=== PATIENT | female | born 1955 | race African-American/Black ===

== ENCOUNTER 2018-06-06 12:50 | Inpatient (IN) | payer MEDICAID ==
[~2018-06-06] VITALS: Ht 182.9 cm; Wt 74.8 kg
[~2018-06-06 12:50] MED LIST: PHEN60TA
[2018-06-06] MEDS ORDERED: ASPIRIN 325MG TABLET PO ONE (16:15)
[2018-06-06] MEDS: NITROGLYCERIN 0.4MG TABLET SL SL PRN ×2 (16:28→16:35)
[2018-06-06 17:21] LABS: BASOPHILS % 0.5 % (0.0-2.0); EOSINOPHILS % 0.2 % (0.0-5.0); HEMATOCRIT. 42.3 % (36.0-48.0); HEMOGLOBIN. 14.4 g/dL (12.0-16.0); LYMPHOCYTES % 37.6 % (20.0-50.0); MEAN CORPUSCULAR HEMOGLOBIN 34.4 pg (28.0-32.0); MEAN CORPUSCULAR VOLUME 100.9 fL (81.0-99.0); MEAN PLATELET VOLUME 9.4 fl (7.4-10.4); MONOCYTES % 8.8 % (2.0-8.0); NEUTROPHILS % 52.9 % (40.0-76.0); PLATELET 177 x1000/uL (130-400); RED CELL DISTRIBUTION WIDTH 14.1 % (11.6-14.6)
[2018-06-06 17:25] LABS: CHLORIDE 94 mEq/L (98-107)
[2018-06-06 17:31] LABS: INR 1.1; PARTIAL THROMBOPLASTIN TIME 26.9 sec (23.4-31.0); PROTHROMBIN TIME 10.6 sec (9.1-11.1)
[2018-06-06 17:32] LABS: CLARITY URINE CLEAR (CLEAR); COLOR URINE YELLOW (YELLOW); KETONES URINE NEGATIVE (NEGATIVE); LEUKOCYTE ESTERASE URINE NEGATIVE (NEGATIVE); NITRITE URINE NEGATIVE (NEGATIVE); OCCULT BLOOD URINE TRACE (NEGATIVE); PROTEIN URINE NEGATIVE (NEGATIVE); SPECIFIC GRAVITY URINE 1.014 (1.005-1.030)
[2018-06-06] MEDS ORDERED: KCL 10MEQ/50ML PREMIX 50 ML IV ONE (17:45)
[2018-06-06] MEDS ORDERED: POTASSIUM CHLORIDE 20MEQ TABLET SR PO ONE (17:45)
[2018-06-06 17:47] LABS: *BARBITURATES SCREEN URINE PRESUMTIVE POSITIVE (NEGATIVE)
[2018-06-06 17:48] LABS: *BENZODIAZEPINES SCREEN URINE NEGATIVE (NEGATIVE); *COCAINE SCREEN URINE NEGATIVE (NEGATIVE); CANNABINOID URINE SCREEN PRESUMTIVE POSITIVE (NEGATIVE); METHADONE URINE SCREEN NEGATIVE (NEGATIVE); OPIATES URINE SCREEN NEGATIVE (NEGATIVE); PHENCYCLIDINE URINE SCREEN NEGATIVE (NEGATIVE)
[2018-06-06 17:55] LABS: *AMPHETAMINES SCREEN URINE NEGATIVE (NEGATIVE)
[2018-06-06] MEDS ORDERED: GUAIFENESIN 200MG/10ML SUGAR FREE UDC PO PRN (19:45)
[2018-06-06] MEDS ORDERED: CLONIDINE 0.1MG TABLET PO PRN (19:45)
[2018-06-06] MEDS ORDERED: IPRATROPIUM/ALBUTEROL 0.5-3(2.5)MG/3ML NEB INH PRN (19:45)
[2018-06-06] MEDS ORDERED: MAGNESIUM/ALUMINUM HYDROXIDE/SIMETHICONE 30ML UDC PO PRN (19:45)
[2018-06-06] MEDS ORDERED: ONDANSETRON HCL 4MG/2ML INJ IV PRN (19:45)
[2018-06-06] MEDS ORDERED: ACETAMINOPHEN 325MG TABLET PO PRN (19:45)
[2018-06-06] MEDS ORDERED: DOCUSATE SODIUM 100MG CAPSULE PO PRN (19:45)
[2018-06-07] VITALS (7 sets, daily range): BP systolic 107–148; BP diastolic 63–70
[2018-06-07 00:22] LABS: CHLORIDE 99 mEq/L (98-107)
[2018-06-07 00:31] LABS: CREATINE KINASE 132 IU/L (26-192)
[2018-06-07 00:33] LABS: CREATINE KINASE MB FRACTION 1.5 ng/mL (0.5-3.6)
[2018-06-07] MEDS ORDERED: AMLO10TA4 MT (03:00)
[2018-06-07] MEDS ORDERED: PHEN60TA PO (03:00)
[2018-06-07] MEDS ORDERED: KEPP500 PO (03:00)
[2018-06-07 07:57] LABS: BASOPHILS % 0.5 % (0.0-2.0); EOSINOPHILS % 0.4 % (0.0-5.0); HEMATOCRIT. 41.1 % (36.0-48.0); LYMPHOCYTES % 25.2 % (20.0-50.0); MEAN CORPUSCULAR HEMOGLOBIN 34.2 pg (28.0-32.0); MEAN CORPUSCULAR VOLUME 100.8 fL (81.0-99.0); MEAN PLATELET VOLUME 9.1 fl (7.4-10.4); MONOCYTES % 9.7 % (2.0-8.0); NEUTROPHILS % 64.2 % (40.0-76.0); PLATELET 159 x1000/uL (130-400); RED BLOOD CELL COUNT 4.08 mill/uL (4.2-5.4)
[2018-06-07] MEDS ORDERED: POTASSIUM CHLORIDE INJ 40 MEQ in DEXT 5% WATER 250 ML IV SCH (08:30)
[2018-06-07] MEDS: ASPIRIN 81MG EC TABLET PO SCH (09:39)
[2018-06-07] MEDS: ENOXAPARIN 40MG/0.4ML SYR SUBCUT SCH (09:40)
[2018-06-07] MEDS: HYDROCODONE/ACETAMINOPHEN 5/325MG TABLET PO PRN ×3 (10:28→21:07)
[2018-06-07 11:30] LABS: HDL CHOLESTEROL 86 mg/dL (40-59)
[2018-06-07 11:33] LABS: CREATINE KINASE 123 IU/L (26-192); LDL CHOLESTEROL 147 mg/dL (5-100)
[2018-06-07 11:36] LABS: CREATINE KINASE MB FRACTION 1.4 ng/mL (0.5-3.6)
[2018-06-07] MEDS: LEVETIRACETAM 500MG TABLET PO SCH (11:41)
[2018-06-07] MEDS: AMLODIPINE 10MG TABLET PO SCH (11:41)
[2018-06-07] MEDS ORDERED: INFLUENZA VIRUS VACCINE(AFLURIA) 0.5ML SYR IM ONE (12:00)
[2018-06-07] MEDS: PHENOBARBITAL 60MG TABLET PO SCH (13:59)
[2018-06-07] MEDS: POTASSIUM CHLORIDE 20MEQ TABLET SR PO SCH (15:46)
[2018-06-07] MEDS ORDERED: ATORVASTATIN CALCIUM 40MG TABLET PO SCH (21:00)
[2018-06-08 04:13] VITALS: BP 120/72
[2018-06-08 06:56] LABS: HEMATOCRIT. 40.9 % (36.0-48.0); HEMOGLOBIN. 13.9 g/dL (12.0-16.0); MEAN CORPUSCULAR HEMOGLOBIN 34.5 pg (28.0-32.0); MEAN CORPUSCULAR VOLUME 101.3 fL (81.0-99.0); MEAN PLATELET VOLUME 9.7 fl (7.4-10.4); PLATELET 160 x1000/uL (130-400); RED BLOOD CELL COUNT 4.04 mill/uL (4.2-5.4); RED CELL DISTRIBUTION WIDTH 14.4 % (11.6-14.6)
[2018-06-08] MEDS: HYDROCODONE/ACETAMINOPHEN 5/325MG TABLET PO PRN ×3 (07:02→18:27)
[2018-06-08] MEDS ORDERED: DEXTROSE 50% WATER 50ML SYRINGE IV PRN (07:15)
[2018-06-08] MEDS: BLOOD SUGAR DIAGNOSTIC STRIP TEST SCH ×3 (07:23→17:50)
[2018-06-08 07:33] LABS: CHLORIDE 101 mEq/L (98-107)
[2018-06-08 08:00] VITALS: BP 118/68
[2018-06-08] MEDS ORDERED: POLYETHYLENE GLYCOL 3350 (17GM) 1 DOSE PACK PO SCH (09:00)
[2018-06-08] MEDS: LEVETIRACETAM 500MG TABLET PO SCH (10:42)
[2018-06-08] MEDS: POTASSIUM CHLORIDE 20MEQ TABLET SR PO SCH (10:42)
[2018-06-08] MEDS: ASPIRIN 81MG EC TABLET PO SCH (10:42)
[2018-06-08] MEDS: ENOXAPARIN 40MG/0.4ML SYR SUBCUT SCH (10:43)
[2018-06-08] MEDS: AMLODIPINE 10MG TABLET PO SCH (10:43)
[2018-06-08] MEDS: PHENOBARBITAL 60MG TABLET PO SCH (10:43)
[2018-06-08 12:00] VITALS: BP 120/64
[2018-06-08] MEDS: INSULIN LISPRO 100 UNITS/ML SUBCUT SCH ×2 (12:50→17:50)
[2018-06-08 16:00] VITALS: BP 130/68
[2018-06-08] MEDS ORDERED: POTASSIUM CHLORIDE 20MEQ TABLET SR PO NR (17:45)
[2018-06-08] MEDS ORDERED: POLY17PO3 PO (17:45)
[2018-06-08] MEDS ORDERED: POTA10CA42 MT (17:45)
[2018-06-08] MEDS ORDERED: ASPI-1158 PO (17:45)
[2018-06-08] MEDS ORDERED: LIP40 PO (17:45)
[2018-06-08 19:49] VITALS: BP 127/81
[2018-06-08 20:00] VITALS: BP 127/81
[2018-06-09 09:56] LABS: PLATELET ESTIMATE NORMAL
== END 2018-06-08 20:45 | disposition home or self-care (01) | DRG 198 ==
LOC: ER 12:50 → 6WST 18:11 → EDBEDREQTM 18:23 → EDBEDREQ 18:23 → ENRESERV 23:19
PROVIDERS: ADMIT Internal Medicine; ATTEND Internal Medicine
DX: R07.89 Other chest pain (principal); I25.110 Atherosclerotic heart disease of native coronary artery with unstable angina pectoris; E11.9 Type 2 diabetes mellitus without complications; E78.5 Hyperlipidemia, unspecified; E87.6 Hypokalemia; H54.62 Unqualified visual loss, left eye, normal vision right eye; I10 Essential (primary) hypertension; M10.9 Gout, unspecified; M19.90 Unspecified osteoarthritis, unspecified site; Z90.710 Acquired absence of both cervix and uterus; Z88.5 Allergy status to narcotic agent; Z88.6 Allergy status to analgesic agent; Z79.899 Other long term (current) drug therapy
CPT/HCPCS: 36415; 71045; 80048; 80061; 80305; 82550; 82553; 82962; 83036; 83735; 83880; 84443; 84484; 85379; 90686; 93005; 93306; 93970; 96360; 99285; J1650; J3480; J7050; J7060

== ENCOUNTER 2019-02-20 07:08 | Inpatient (IN) | payer MEDICAID ==
[~2019-02-20] VITALS: Ht 182.9 cm; Wt 84.0 kg
[~2019-02-20 07:08] MED LIST changes: +AMLO10TA4 MT; +ASPI-1158 PO; +KEPP500 PO; +LIP40 PO; +POLY17PO3 PO; +POTA10CA42 MT
[2019-02-20] MEDS ORDERED: NITROGLYCERIN 0.4MG TABLET SL SL PRN (07:30)
[2019-02-20] MEDS ORDERED: ACETAMINOPHEN WITH CODEINE 300/30MG TABLET PO STA (07:30)
[2019-02-20] MEDS ORDERED: ASPIRIN 81MG TABLET PO ONE (07:30)
[2019-02-20 08:22] LABS: BASOPHILS % 0.8 % (0.0-2.0); HEMATOCRIT. 42.3 % (36.0-48.0); HEMOGLOBIN. 14.8 g/dL (12.0-16.0); LYMPHOCYTES % 42.6 % (20.0-50.0); MEAN CORPUSCULAR HEMOGLOBIN 36.2 pg (28.0-32.0); MEAN CORPUSCULAR VOLUME 103.9 fL (81.0-99.0); MEAN PLATELET VOLUME 8.9 fl (7.4-10.4); MONOCYTES % 6.9 % (2.0-8.0); NEUTROPHILS % 49.7 % (40.0-76.0); PLATELET 151 x1000/uL (130-400); RED BLOOD CELL COUNT 4.07 mill/uL (4.2-5.4)
[2019-02-20 08:29] LABS: CHLORIDE 101 mEq/L (98-107)
[2019-02-20] MEDS ORDERED: KCL 20MEQ/100ML PREMIX 100 ML IV ONE (09:15)
[2019-02-20] MEDS ORDERED: ONDANSETRON HCL 4MG/2ML INJ IV ONE (09:15)
[2019-02-20] MEDS ORDERED: POTASSIUM CHLORIDE 20MEQ TABLET SR PO ONE (09:15)
[2019-02-20] MEDS ORDERED: METOCLOPRAMIDE HCL 10MG/2ML VIAL IV ONE (10:15)
[2019-02-20] MEDS ORDERED: DOCUSATE SODIUM 100MG CAPSULE PO PRN (11:15)
[2019-02-20] MEDS ORDERED: CLONIDINE 0.1MG TABLET PO PRN (11:15)
[2019-02-20] MEDS ORDERED: DIPHENHYDRAMINE 50MG/ML VIAL IV PRN (11:15)
[2019-02-20] MEDS ORDERED: MAGNESIUM/ALUMINUM HYDROXIDE/SIMETHICONE 30ML UDC PO PRN (11:15)
[2019-02-20] MEDS ORDERED: GUAIFENESIN 200MG/10ML SUGAR FREE UDC PO PRN (11:15)
[2019-02-20] MEDS ORDERED: ONDANSETRON HCL 4MG/2ML INJ IV PRN (11:15)
[2019-02-20 11:37] LABS: PHOSPHORUS 3.3 mg/dL (2.5-4.9)
[2019-02-20 12:00] VITALS: BP 140/77
[2019-02-20] MEDS ORDERED: IPRATROPIUM/ALBUTEROL 0.5-3(2.5)MG/3ML NEB HHN PRN (12:00)
[2019-02-20 12:23] VITALS: BP 138/92
[2019-02-20] MEDS ORDERED: POTASSIUM CHLORIDE 20MEQ TABLET SR PO NR (13:45)
[2019-02-20] MEDS ORDERED: MAGNESIUM 2 G PREMIX 50 ML IV NR (14:00)
[2019-02-20] MEDS: AMLODIPINE 10MG TABLET PO SCH (14:06)
[2019-02-20] MEDS: LEVETIRACETAM 500MG TABLET PO SCH ×2 (14:06→20:46)
[2019-02-20] MEDS: ENOXAPARIN 40MG/0.4ML SYR SUBCUT SCH (14:07)
[2019-02-20] MEDS: PHENOBARBITAL 30 MG TABLET PO SCH (14:07)
[2019-02-20] MEDS: SODIUM CHLORIDE 0.9% 1,000 ML IV SCH (14:08)
[2019-02-20] MEDS: MORPHINE SULFATE 2 MG/ML CPJ (NOT FOR IM USE) IV PRN ×2 (14:09→20:31)
[2019-02-20] MEDS ORDERED: LORAZEPAM 2MG/ML CPJ IV PRN (14:30)
[2019-02-20 16:00] VITALS: BP 140/62
[2019-02-20 20:00] VITALS: BP 121/78
[2019-02-20 20:24] LABS: CREATINE KINASE 172 IU/L (26-192)
[2019-02-20 20:27] LABS: CREATINE KINASE MB FRACTION 1.9 ng/mL (0.5-3.6)
[2019-02-20] MEDS: ATORVASTATIN CALCIUM 40MG TABLET PO SCH (20:46)
[2019-02-20] MEDS: FAMOTIDINE 20MG/2ML VIAL IV SCH (20:47)
[2019-02-21] VITALS: BP 141/73
[2019-02-21] MEDS: SODIUM CHLORIDE 0.9% 1,000 ML IV SCH ×2 (00:18→12:14)
[2019-02-21 04:00] VITALS: BP 135/78
[2019-02-21] MEDS: MORPHINE SULFATE 2 MG/ML CPJ (NOT FOR IM USE) IV PRN ×3 (04:24→20:35)
[2019-02-21 07:02] LABS: BASOPHILS % 0.4 % (0.0-2.0); EOSINOPHILS % 0.2 % (0.0-5.0); HEMATOCRIT. 41.4 % (36.0-48.0); HEMOGLOBIN. 14.3 g/dL (12.0-16.0); LYMPHOCYTES % 34.1 % (20.0-50.0); MEAN CORPUSCULAR VOLUME 104.1 fL (81.0-99.0); MEAN PLATELET VOLUME 9.6 fl (7.4-10.4); MONOCYTES % 10.4 % (2.0-8.0); NEUTROPHILS % 54.9 % (40.0-76.0); PLATELET 127 x1000/uL (130-400); RED BLOOD CELL COUNT 3.97 mill/uL (4.2-5.4); RED CELL DISTRIBUTION WIDTH 13.8 % (11.6-14.6)
[2019-02-21 07:50] LABS: CHLORIDE 102 mEq/L (98-107)
[2019-02-21 08:00] VITALS: BP 142/74
[2019-02-21 08:08] LABS: LDL CHOLESTEROL 92 mg/dL (5-100)
[2019-02-21 08:09] LABS: CREATINE KINASE 235 IU/L (26-192); HDL CHOLESTEROL 53 mg/dL (40-59)
[2019-02-21] MEDS ORDERED: ASPIRIN 81MG EC TABLET PO SCH (09:00)
[2019-02-21] MEDS: AMLODIPINE 10MG TABLET PO SCH (09:39)
[2019-02-21] MEDS: LEVETIRACETAM 500MG TABLET PO SCH ×2 (09:39→20:22)
[2019-02-21] MEDS: PHENOBARBITAL 30 MG TABLET PO SCH (09:39)
[2019-02-21] MEDS: ENOXAPARIN 40MG/0.4ML SYR SUBCUT SCH (09:40)
[2019-02-21] MEDS: FAMOTIDINE 20MG/2ML VIAL IV SCH (09:40)
[2019-02-21 12:00] VITALS: BP 134/71
[2019-02-21] MEDS ORDERED: MAGNESIUM 2 G PREMIX 50 ML IV NR (13:30)
[2019-02-21] MEDS ORDERED: DIPHENHYDRAMINE 25MG CAPSULE PO PRN (15:30)
[2019-02-21 16:00] VITALS: BP 115/70
[2019-02-21] MEDS ORDERED: POTASSIUM CHLORIDE 20MEQ TABLET SR PO NR ×3 (16:00→20:00)
[2019-02-21 20:00] VITALS: BP 118/74
[2019-02-21] MEDS: PANTOPRAZOLE SODIUM 40 MG/VIAL IV SCH (20:21)
[2019-02-21] MEDS: ZOLPIDEM TARTRATE 5MG TABLET PO SCH (20:22)
[2019-02-21] MEDS: ATORVASTATIN CALCIUM 40MG TABLET PO SCH (20:22)
[2019-02-22] VITALS: BP 115/75
[2019-02-22] MEDS: SODIUM CHLORIDE 0.9% 1,000 ML IV SCH ×2 (03:20→16:35)
[2019-02-22 04:00] VITALS: BP 126/76
[2019-02-22] MEDS: MORPHINE SULFATE 2 MG/ML CPJ (NOT FOR IM USE) IV PRN ×3 (04:11→17:35)
[2019-02-22 08:25] LABS: BASOPHILS % 0.6 % (0.0-2.0); EOSINOPHILS % 0.7 % (0.0-5.0); HEMATOCRIT. 40.1 % (36.0-48.0); HEMOGLOBIN. 13.8 g/dL (12.0-16.0); LYMPHOCYTES % 37.6 % (20.0-50.0); MEAN CORPUSCULAR HEMOGLOBIN 36.2 pg (28.0-32.0); MEAN CORPUSCULAR VOLUME 105.3 fL (81.0-99.0); MEAN PLATELET VOLUME 9.5 fl (7.4-10.4); MONOCYTES % 8.4 % (2.0-8.0); NEUTROPHILS % 52.7 % (40.0-76.0); PLATELET 105 x1000/uL (130-400); RED BLOOD CELL COUNT 3.81 mill/uL (4.2-5.4); RED CELL DISTRIBUTION WIDTH 13.8 % (11.6-14.6)
[2019-02-22 08:31] LABS: INR 1.1; PARTIAL THROMBOPLASTIN TIME 27.6 sec (23.4-31.0); PROTHROMBIN TIME 11.1 sec (9.6-11.0)
[2019-02-22 08:42] LABS: CHLORIDE 107 mEq/L (98-107)
[2019-02-22] MEDS: LEVETIRACETAM 500MG TABLET PO SCH ×2 (09:36→20:35)
[2019-02-22] MEDS: PANTOPRAZOLE SODIUM 40 MG/VIAL IV SCH ×2 (09:36→20:35)
[2019-02-22] MEDS: AMLODIPINE 10MG TABLET PO SCH (09:37)
[2019-02-22] MEDS: PHENOBARBITAL 30 MG TABLET PO SCH (09:37)
[2019-02-22 12:00] VITALS: BP 128/74
[2019-02-22] MEDS ORDERED: MIDAZOLAM HCL 5 MG/5 ML VIAL ONE (13:03)
[2019-02-22] MEDS ORDERED: FENTANYL CITRATE/PF 50MCG/ML 2ML VIAL ONE (13:04)
[2019-02-22 16:00] VITALS: BP 104/64
[2019-02-22 20:00] VITALS: BP 109/71
[2019-02-22] MEDS: ZOLPIDEM TARTRATE 5MG TABLET PO SCH (20:35)
[2019-02-22] MEDS: ATORVASTATIN CALCIUM 40MG TABLET PO SCH (20:35)
[2019-02-22] MEDS ORDERED: POTASSIUM CHLORIDE 20MEQ TABLET SR PO SCH (20:45)
[2019-02-23] VITALS (7 sets, daily range): BP systolic 118–140; BP diastolic 74–90
[2019-02-23] MEDS: MORPHINE SULFATE 2 MG/ML CPJ (NOT FOR IM USE) IV PRN ×4 (00:21→18:16)
[2019-02-23] MEDS: SODIUM CHLORIDE 0.9% 1,000 ML IV SCH ×2 (06:08→19:15)
[2019-02-23 07:21] LABS: CHLORIDE 109 mEq/L (98-107)
[2019-02-23] MEDS: LEVETIRACETAM 500MG TABLET PO SCH ×3 (09:00→20:28)
[2019-02-23] MEDS: PHENOBARBITAL 30 MG TABLET PO SCH ×2 (09:00→13:25)
[2019-02-23] MEDS: AMLODIPINE 10MG TABLET PO SCH (09:00)
[2019-02-23] MEDS: PANTOPRAZOLE SODIUM 40 MG/VIAL IV SCH ×2 (09:43→20:27)
[2019-02-23] MEDS ORDERED: FENTANYL CITRATE/PF 50MCG/ML 2ML VIAL ONE (10:22)
[2019-02-23] MEDS ORDERED: MIDAZOLAM HCL 5 MG/5 ML VIAL ONE (10:23)
[2019-02-23] MEDS ORDERED: POTASSIUM CHLORIDE 20MEQ TABLET SR PO NR (12:45)
[2019-02-23] MEDS: SUCRALFATE 1G TABLET PO SCH ×3 (13:25→20:27)
[2019-02-23 19:11] LABS: BASOPHILS % 0.4 % (0.0-2.0); EOSINOPHILS % 1.1 % (0.0-5.0); HEMATOCRIT. 39.3 % (36.0-48.0); HEMOGLOBIN. 13.2 g/dL (12.0-16.0); LYMPHOCYTES % 34.8 % (20.0-50.0); MEAN CORPUSCULAR HEMOGLOBIN 36.3 pg (28.0-32.0); MEAN CORPUSCULAR VOLUME 108.2 fL (81.0-99.0); MEAN PLATELET VOLUME 10.6 fl (7.4-10.4); MONOCYTES % 8.8 % (2.0-8.0); NEUTROPHILS % 54.9 % (40.0-76.0); PLATELET 86 x1000/uL (130-400); RED BLOOD CELL COUNT 3.63 mill/uL (4.2-5.4); RED CELL DISTRIBUTION WIDTH 13.9 % (11.6-14.6)
[2019-02-23 19:59] LABS: FOLIC ACID (FOLATE) SERUM 14.9 ng/mL (>5.38)
[2019-02-23] MEDS: ZOLPIDEM TARTRATE 5MG TABLET PO SCH (20:27)
[2019-02-23] MEDS: ATORVASTATIN CALCIUM 40MG TABLET PO SCH (20:28)
[2019-02-24] VITALS: BP 130/75
[2019-02-24] MEDS: MORPHINE SULFATE 2 MG/ML CPJ (NOT FOR IM USE) IV PRN ×3 (03:28→15:58)
[2019-02-24 04:00] VITALS: BP 145/89
[2019-02-24] MEDS: SUCRALFATE 1G TABLET PO SCH ×2 (05:00→12:10)
[2019-02-24] MEDS ORDERED: OMEPRAZOLE 20MG CAPSULE EXTENDED RELEASE PO SCH (06:00)
[2019-02-24 07:52] VITALS: BP 117/78
[2019-02-24] MEDS: SODIUM CHLORIDE 0.9% 1,000 ML IV SCH (08:31)
[2019-02-24] MEDS: PHENOBARBITAL 30 MG TABLET PO SCH (08:38)
[2019-02-24] MEDS: AMLODIPINE 10MG TABLET PO SCH (08:38)
[2019-02-24] MEDS: LEVETIRACETAM 500MG TABLET PO SCH (08:38)
[2019-02-24] MEDS ORDERED: SUCR1TAB30 PO (13:31)
[2019-02-24] MEDS ORDERED: PHEN60TA PO (13:31)
[2019-02-24] MEDS ORDERED: OMEP20CA5 PO (13:31)
[2019-02-24] MEDS ORDERED: AMLO10TA4 MT (13:31)
[2019-02-24] MEDS ORDERED: POTA10CA42 PO (13:31)
[2019-02-24] MEDS ORDERED: LIP40 PO (13:31)
[2019-02-24] MEDS ORDERED: KEPP500 PO (13:31)
[2019-02-24] MEDS ORDERED: ASPI-1158 PO (13:31)
[2019-02-24 15:56] VITALS: BP 144/82
[2019-02-24 17:11] VITALS: BP 135/72
== END 2019-02-24 17:40 | disposition home or self-care (01) | DRG 241 ==
LOC: ER 07:08 → 8WST 10:12 → EDBEDREQ 10:16 → ENRESERV 10:28 → EDBEDREQ 11:09
PROVIDERS: ADMIT Internal Medicine; ATTEND Internal Medicine
PROC: 0DB68ZX Excision of Stomach, Via Natural or Artificial Opening Endoscopic, Diagnostic (ICD-10-PCS; principal; 2019-02-23)
PROC: 02HV33Z Insertion of Infusion Device into Superior Vena Cava, Percutaneous Approach (ICD-10-PCS; 2019-02-23)
PROC: B5181ZA Fluoroscopy of Superior Vena Cava using Low Osmolar Contrast, Guidance (ICD-10-PCS; 2019-02-23)
PROC: B548ZZA Ultrasonography of Superior Vena Cava, Guidance (ICD-10-PCS; 2019-02-23)
DX: K29.00 Acute gastritis without bleeding (principal); E83.42 Hypomagnesemia; R07.9 Chest pain, unspecified; I25.110 Atherosclerotic heart disease of native coronary artery with unstable angina pectoris; E11.9 Type 2 diabetes mellitus without complications; G40.909 Epilepsy, unspecified, not intractable, without status epilepticus; J44.9 Chronic obstructive pulmonary disease, unspecified; E87.6 Hypokalemia; K57.90 Diverticulosis of intestine, part unspecified, without perforation or abscess without bleeding; R74.0 Nonspecific elevation of levels of transaminase and lactic acid dehydrogenase [LDH]; I10 Essential (primary) hypertension; Z90.710 Acquired absence of both cervix and uterus; I25.2 Old myocardial infarction; Z88.5 Allergy status to narcotic agent; Z88.8 Allergy status to other drugs, medicaments and biological substances
CPT/HCPCS: 36415; 36573; 71045; 74018; 76700; 80048; 80061; 80076; 82150; 82248; 82550; 82553; 82607; 82746; 82977; 83735; 83880; 84100; 84443; 84484; 88305; 88313; 93005; 93306; 93970; 96374; 99285; C1725; C1893; C9113; J1200; J1650; J2060; J2250; J2270; J2405; J2765; J3010; J3475; J3480; J3490; Q0163

== ENCOUNTER 2019-05-29 10:43 | Emergency (ER) | payer MEDICAID ==
[~2019-05-29] VITALS: Ht 170.2 cm; Wt 85.0 kg
[~2019-05-29 10:43] MED LIST changes: +OMEP20CA14 PO; -PHEN60TA; +PHEN60TA PO; -POLY17PO3 PO; -POTA10CA42 MT; +POTA10CA42 PO; +SUCR1TAB30 PO
[2019-05-29] MEDS ORDERED: LEVETIRACETAM 500MG PREMIX 100 ML IV ONE (11:15)
[2019-05-29] MEDS ORDERED: SODIUM CHLORIDE 0.9% 1,000 ML IV ONE (11:15)
[2019-05-29 12:20] LABS: CHLORIDE 102 mEq/L (98-107)
[2019-05-29 12:22] LABS: BASOPHILS % 0.3 % (0.0-2.0); EOSINOPHILS % 0.2 % (0.0-5.0); HEMATOCRIT. 43.1 % (36.0-48.0); HEMOGLOBIN. 14.9 g/dL (12.0-16.0); LYMPHOCYTES % 25.9 % (20.0-50.0); MEAN CORPUSCULAR HEMOGLOBIN 36.6 pg (28.0-32.0); MEAN CORPUSCULAR VOLUME 105.3 fL (81.0-99.0); MEAN PLATELET VOLUME 10.2 fl (7.4-10.4); MONOCYTES % 7.1 % (2.0-8.0); NEUTROPHILS % 66.5 % (40.0-76.0); PLATELET 94 x1000/uL (130-400); RED BLOOD CELL COUNT 4.09 mill/uL (4.2-5.4); RED CELL DISTRIBUTION WIDTH 15.3 % (11.6-14.6)
[2019-05-29 12:24] LABS: ETHANOL BLOOD < 10 mg/dL
[2019-05-29 13:22] LABS: CLARITY URINE CLOUDY (CLEAR); COLOR URINE ORANGE (YELLOW); KETONES URINE 2+ (NEGATIVE); LEUKOCYTE ESTERASE URINE 1+ (NEGATIVE); NITRITE URINE NEGATIVE (NEGATIVE); OCCULT BLOOD URINE TRACE (NEGATIVE); PH URINE 6.5 (4.5-8.0); PROTEIN URINE 2+ (NEGATIVE)
[2019-05-29 13:41] LABS: *AMPHETAMINES SCREEN URINE NEGATIVE (NEGATIVE)
[2019-05-29 13:42] LABS: *BARBITURATES SCREEN URINE NEGATIVE (NEGATIVE); *BENZODIAZEPINES SCREEN URINE NEGATIVE (NEGATIVE); *COCAINE SCREEN URINE NEGATIVE (NEGATIVE); PHENCYCLIDINE URINE SCREEN NEGATIVE (NEGATIVE)
[2019-05-29 13:46] LABS: CANNABINOID URINE SCREEN NEGATIVE (NEGATIVE); METHADONE URINE SCREEN NEGATIVE (NEGATIVE)
[2019-05-29 13:49] LABS: OPIATES URINE SCREEN NEGATIVE (NEGATIVE)
[2019-05-29] MEDS ORDERED: POTASSIUM CHLORIDE 20MEQ TABLET SR PO ONE (14:30)
[2019-05-29] MEDS ORDERED: ACETAMINOPHEN WITH CODEINE 300/30MG TABLET PO ONE (14:30)
[2019-05-29 15:01] VITALS: BP 134/80
== END 2019-05-29 15:39 | disposition home or self-care (01) ==
LOC: ER 10:43
DX: G40.909 Epilepsy, unspecified, not intractable, without status epilepticus (principal); E87.6 Hypokalemia; N30.90 Cystitis, unspecified without hematuria; I48.91 Unspecified atrial fibrillation; E11.9 Type 2 diabetes mellitus without complications; I10 Essential (primary) hypertension; Z88.6 Allergy status to analgesic agent; Z79.82 Long term (current) use of aspirin; Z90.710 Acquired absence of both cervix and uterus
CPT/HCPCS: 36415; 71045; 80053; 80305; 80320; 81003; 85025; 93005; 96365; 96366; 99284; J1953; J7030; Z7610; G0480

== ENCOUNTER 2020-03-26 07:58 | Inpatient (IN) | payer MEDICAID ==
[~2020-03-26] VITALS: Ht 182.9 cm; Wt 81.6 kg
[2020-03-26] MEDS ORDERED: SODIUM CHLORIDE 0.9% 1000ML BAG (SEPSIS BOLUS) IV ONE (09:00)
[2020-03-26] MEDS ORDERED: PIPERACILLIN/TAZ 3.375G PREMIX 50 ML IV ONE (09:00)
[2020-03-26] MEDS ORDERED: VANCOMYCIN 1 G PREMIX 200 ML IV ONE (09:00)
[2020-03-26 09:40] LABS: BASOPHILS % 0.6 % (0.0-2.0); HEMATOCRIT. 40.4 % (36.0-48.0); LYMPHOCYTES % 20.5 % (20.0-50.0); MEAN CORPUSCULAR HEMOGLOBIN 36.7 pg (28.0-32.0); MEAN CORPUSCULAR VOLUME 105.6 fL (81.0-99.0); MEAN PLATELET VOLUME 9.1 fl (7.4-10.4); MONOCYTES % 7.9 % (2.0-8.0); PLATELET 126 x1000/uL (130-400); RED BLOOD CELL COUNT 3.83 mill/uL (4.2-5.4); RED CELL DISTRIBUTION WIDTH 14.3 % (11.6-14.6)
[2020-03-26 09:44] LABS: CHLORIDE 101 mEq/L (98-107)
[2020-03-26 09:48] LABS: INR 1.1; PARTIAL THROMBOPLASTIN TIME 27.5 sec (23.4-31.0); PROTHROMBIN TIME 11.4 sec (9.6-11.0)
[2020-03-26 09:49] LABS: C REACTIVE PROTEIN QUANT 0.3 mg/L (0.0-3.0)
[2020-03-26] MEDS ORDERED: ONDANSETRON HCL 4MG/2ML INJ IV ONE (10:15)
[2020-03-26] MEDS ORDERED: MORPHINE SULFATE 4 MG/ML CPJ (NOT FOR IM USE) IV ONE (10:15)
[2020-03-26] MEDS ORDERED: POTASSIUM CHLORIDE 20MEQ TABLET SR PO ONE (10:45)
[2020-03-26 11:40] LABS: CLARITY URINE CLEAR (CLEAR); COLOR URINE YELLOW (YELLOW); KETONES URINE NEGATIVE (NEGATIVE); LEUKOCYTE ESTERASE URINE NEGATIVE (NEGATIVE); NITRITE URINE NEGATIVE (NEGATIVE); OCCULT BLOOD URINE NEGATIVE (NEGATIVE); PH URINE 7.5 (4.5-8.0); PROTEIN URINE TRACE (NEGATIVE); SPECIFIC GRAVITY URINE 1.019 (1.005-1.030)
[2020-03-26] MEDS ORDERED: ONDANSETRON HCL 4MG/2ML INJ IV PRN (12:00)
[2020-03-26 14:30] VITALS: BP 160/84
[2020-03-26] MEDS ORDERED: IOHEXOL-300 100 ML BOTTLE ONE (14:52)
[2020-03-26] MEDS ORDERED: PIPERACILLIN/TAZ 3.375G PREMIX 50 ML IV SCH (15:00)
[2020-03-26] MEDS: MORPHINE SULFATE 2 MG/ML CPJ (NOT FOR IM USE) IV PRN ×2 (15:15→20:20)
[2020-03-26 16:00] VITALS: BP 160/84
[2020-03-26] MEDS: LEVETIRACETAM 500MG TABLET PO SCH (18:03)
[2020-03-26] MEDS: PHENOBARBITAL 30 MG TABLET PO SCH (18:04)
[2020-03-26] MEDS: SODIUM CHLORIDE 0.9% 1,000 ML IV SCH (18:05)
[2020-03-26 20:00] VITALS: BP 167/75
[2020-03-26] MEDS: PIPERACILLIN/TAZOBACTAM 3.375 G in DEXT 5% WATER 100 ML IV SCH (21:42)
[2020-03-26] MEDS: VANCOMYCIN 1 G PREMIX 200 ML IV SCH (23:11)
[2020-03-27] VITALS: BP 155/88
[2020-03-27] MEDS: PIPERACILLIN/TAZOBACTAM 3.375 G in DEXT 5% WATER 100 ML IV SCH ×4 (00:39→17:40)
[2020-03-27] MEDS: MORPHINE SULFATE 2 MG/ML CPJ (NOT FOR IM USE) IV PRN ×4 (01:20→19:50)
[2020-03-27 04:00] VITALS: BP 157/94
[2020-03-27 05:44] LABS: BASOPHILS % 0.5 % (0.0-2.0); HEMATOCRIT. 36.7 % (36.0-48.0); HEMOGLOBIN. 12.6 g/dL (12.0-16.0); LYMPHOCYTES % 35.2 % (20.0-50.0); MEAN CORPUSCULAR HEMOGLOBIN 36.5 pg (28.0-32.0); MEAN CORPUSCULAR VOLUME 106.2 fL (81.0-99.0); MEAN PLATELET VOLUME 9.1 fl (7.4-10.4); MONOCYTES % 9.3 % (2.0-8.0); PLATELET 99 x1000/uL (130-400); RED BLOOD CELL COUNT 3.46 mill/uL (4.2-5.4); RED CELL DISTRIBUTION WIDTH 14.4 % (11.6-14.6)
[2020-03-27] MEDS: LEVETIRACETAM 500MG TABLET PO SCH ×2 (05:48→17:42)
[2020-03-27] MEDS: OMEPRAZOLE 20MG CAPSULE EXTENDED RELEASE PO SCH (05:48)
[2020-03-27 06:06] LABS: CHLORIDE 102 mEq/L (98-107)
[2020-03-27 06:17] LABS: LDL CHOLESTEROL 119 mg/dL (5-100)
[2020-03-27 06:20] LABS: HDL CHOLESTEROL 53 mg/dL (40-59)
[2020-03-27 08:00] VITALS: BP 152/90
[2020-03-27] MEDS: PHENOBARBITAL 30 MG TABLET PO SCH ×2 (08:59→17:40)
[2020-03-27] MEDS: AMLODIPINE 10MG TABLET PO SCH (08:59)
[2020-03-27] MEDS: VANCOMYCIN 1 G PREMIX 200 ML IV SCH ×2 (09:29→21:45)
[2020-03-27 12:00] VITALS: BP 156/96
[2020-03-27] MEDS ORDERED: POTASSIUM CHLORIDE 20MEQ TABLET SR PO SCH (12:00)
[2020-03-27 16:00] VITALS: BP 143/93
[2020-03-27 20:00] VITALS: BP 153/89
[2020-03-28] VITALS: BP 147/88
[2020-03-28] MEDS: MORPHINE SULFATE 2 MG/ML CPJ (NOT FOR IM USE) IV PRN ×5 (00:09→21:45)
[2020-03-28] MEDS: PIPERACILLIN/TAZOBACTAM 3.375 G in DEXT 5% WATER 100 ML IV SCH ×3 (00:09→11:53)
[2020-03-28] MEDS: SODIUM CHLORIDE 0.9% 1,000 ML IV SCH ×3 (00:10→19:55)
[2020-03-28 04:00] VITALS: BP 156/97
[2020-03-28] MEDS: LEVETIRACETAM 500MG TABLET PO SCH ×2 (05:48→17:27)
[2020-03-28] MEDS: OMEPRAZOLE 20MG CAPSULE EXTENDED RELEASE PO SCH (05:48)
[2020-03-28 06:27] LABS: BASOPHILS % 0.6 % (0.0-2.0); EOSINOPHILS % 0.4 % (0.0-5.0); HEMATOCRIT. 38.4 % (36.0-48.0); HEMOGLOBIN. 13.4 g/dL (12.0-16.0); LYMPHOCYTES % 19.4 % (20.0-50.0); MEAN CORPUSCULAR VOLUME 105.9 fL (81.0-99.0); MEAN PLATELET VOLUME 9.2 fl (7.4-10.4); MONOCYTES % 9.3 % (2.0-8.0); NEUTROPHILS % 70.3 % (40.0-76.0); PLATELET 84 x1000/uL (130-400); RED BLOOD CELL COUNT 3.63 mill/uL (4.2-5.4); RED CELL DISTRIBUTION WIDTH 14.5 % (11.6-14.6)
[2020-03-28 08:00] VITALS: BP 139/72
[2020-03-28] MEDS: VANCOMYCIN 1 G PREMIX 200 ML IV SCH (08:45)
[2020-03-28] MEDS: PHENOBARBITAL 30 MG TABLET PO SCH ×2 (08:45→17:27)
[2020-03-28] MEDS: AMLODIPINE 10MG TABLET PO SCH (08:46)
[2020-03-28] MEDS ORDERED: POTASSIUM CHLORIDE 20MEQ TABLET SR PO SCH (11:00)
[2020-03-28 12:00] VITALS: BP 138/86
[2020-03-28] MEDS: CEFEPIME 1,000 MG in DEXTROSE 5% WATER 50 ML IV SCH ×2 (13:49→22:06)
[2020-03-28] MEDS: METRONIDAZOLE 500 MG PREMIX 100 ML IV SCH ×2 (13:50→22:06)
[2020-03-28 16:00] VITALS: BP 158/78
[2020-03-28] MEDS ORDERED: LIDOCAINE HCL 1% 20ML VIAL (Pyxis) INJ ONE (19:09)
[2020-03-28] MEDS ORDERED: SKIN ADHESIVE 0.7 GM EA TOP ONE (19:09)
[2020-03-28] MEDS ORDERED: BUPIVACAINE HCL 0.5% (5MG/ML) 50ML ONE (19:10)
[2020-03-28] MEDS ORDERED: BACITRACIN 50,000 UNITS/VIAL ONE (19:10)
[2020-03-28] MEDS ORDERED: SODIUM CHLORIDE 0.9% INJ 10ML FLUSH IVF ONE (19:10)
[2020-03-28] MEDS ORDERED: MIDAZOLAM HCL 2 MG/2 ML VIAL ONE (19:36)
[2020-03-28] MEDS ORDERED: LIDOCAINE HCL/PF 1% 10 MG/ML 5ML VIAL ONE (19:36)
[2020-03-28] MEDS ORDERED: GLYCOPYRROLATE 0.2 MG/ML 2ML VIAL ONE (19:36)
[2020-03-28] MEDS ORDERED: PROPOFOL 200MG/20ML VIAL IV ONE (19:36)
[2020-03-28] MEDS ORDERED: FENTANYL CITRATE/PF 50MCG/ML 2ML VIAL ONE (19:36)
[2020-03-28] MEDS ORDERED: ONDANSETRON HCL 4MG/2ML INJ ONE (19:39)
[2020-03-28] MEDS ORDERED: SUCCINYLCHOLINE CHLORIDE 200MG/10ML IV ONE (19:39)
[2020-03-28] MEDS ORDERED: METOCLOPRAMIDE HCL 10MG/2ML VIAL ONE (19:39)
[2020-03-28] MEDS ORDERED: MORPHINE SULFATE 2 MG/ML CPJ (NOT FOR IM USE) IV PRN (20:15)
[2020-03-28] MEDS ORDERED: ONDANSETRON HCL 4MG/2ML INJ IV PRN (20:15)
[2020-03-28] MEDS ORDERED: SODIUM CHLORIDE 0.9% 1,000 ML IV ONE (20:15)
[2020-03-29] VITALS: BP 149/84
[2020-03-29] MEDS: MORPHINE SULFATE 2 MG/ML CPJ (NOT FOR IM USE) IV PRN ×3 (02:15→11:02)
[2020-03-29 04:00] VITALS: BP 141/90
[2020-03-29] MEDS: SODIUM CHLORIDE 0.9% 1,000 ML IV SCH ×2 (05:53→20:37)
[2020-03-29] MEDS: LEVETIRACETAM 500MG TABLET PO SCH (05:53)
[2020-03-29] MEDS: OMEPRAZOLE 20MG CAPSULE EXTENDED RELEASE PO SCH (05:53)
[2020-03-29] MEDS: METRONIDAZOLE 500 MG PREMIX 100 ML IV SCH ×3 (05:54→22:57)
[2020-03-29 06:40] LABS: BASOPHILS % 0.4 % (0.0-2.0); HEMOGLOBIN. 12.4 g/dL (12.0-16.0); LYMPHOCYTES % 20.1 % (20.0-50.0); MEAN CORPUSCULAR HEMOGLOBIN 36.5 pg (28.0-32.0); MEAN CORPUSCULAR VOLUME 108.8 fL (81.0-99.0); MEAN PLATELET VOLUME 9.8 fl (7.4-10.4); MONOCYTES % 9.2 % (2.0-8.0); NEUTROPHILS % 69.3 % (40.0-76.0); PLATELET 86 x1000/uL (130-400); RED CELL DISTRIBUTION WIDTH 14.4 % (11.6-14.6)
[2020-03-29 08:00] VITALS: BP 133/81
[2020-03-29] MEDS: PHENOBARBITAL 30 MG TABLET PO SCH (09:36)
[2020-03-29] MEDS: AMLODIPINE 10MG TABLET PO SCH (09:37)
[2020-03-29] MEDS: CEFEPIME 1,000 MG in DEXTROSE 5% WATER 50 ML IV SCH (11:02)
[2020-03-29 12:00] VITALS: BP 124/76
[2020-03-29] MEDS ORDERED: KETOROLAC 15MG/ML VIAL IV PRN (14:00)
[2020-03-29] MEDS ORDERED: NALOXONE HCL 0.4 MG/ML 1ML VIAL IV PRN (14:00)
[2020-03-29] MEDS ORDERED: HYDROCODONE/ACETAMINOPHEN 5/325MG TABLET PO PRN (14:00)
[2020-03-29] MEDS: HYDROMORPHONE HCL/PF 2MG/ML CPJ IV PRN (15:50)
[2020-03-29 16:00] VITALS: BP 147/98
[2020-03-29 16:35] LABS: CREATINE KINASE 85 IU/L (26-192)
[2020-03-29 20:00] VITALS: BP 129/74
[2020-03-30] VITALS: BP 135/79
[2020-03-30 04:00] VITALS: BP 151/86
[2020-03-30] MEDS ORDERED: POTASSIUM CHLORIDE 20MEQ TABLET SR PO NR (05:30)
[2020-03-30 05:43] LABS: BASOPHILS % 0.6 % (0.0-2.0); EOSINOPHILS % 2.1 % (0.0-5.0); HEMATOCRIT. 36.6 % (36.0-48.0); HEMOGLOBIN. 12.2 g/dL (12.0-16.0); LYMPHOCYTES % 27.1 % (20.0-50.0); MEAN CORPUSCULAR HEMOGLOBIN 36.7 pg (28.0-32.0); MEAN CORPUSCULAR VOLUME 109.5 fL (81.0-99.0); MEAN PLATELET VOLUME 9.9 fl (7.4-10.4); MONOCYTES % 13.5 % (2.0-8.0); NEUTROPHILS % 56.7 % (40.0-76.0); PLATELET 87 x1000/uL (130-400); RED BLOOD CELL COUNT 3.34 mill/uL (4.2-5.4); RED CELL DISTRIBUTION WIDTH 14.5 % (11.6-14.6)
[2020-03-30] MEDS: LEVETIRACETAM 500MG TABLET PO SCH ×2 (05:48→09:11)
[2020-03-30] MEDS: HYDROMORPHONE HCL/PF 2MG/ML CPJ IV PRN ×5 (05:48→23:55)
[2020-03-30] MEDS: METRONIDAZOLE 500 MG PREMIX 100 ML IV SCH ×2 (05:50→14:31)
[2020-03-30 06:13] LABS: CHLORIDE 113 mEq/L (98-107)
[2020-03-30 06:21] LABS: PHOSPHORUS 3.9 mg/dL (2.5-4.9)
[2020-03-30 07:13] LABS: HEPATITIS A AB IGM NEGATIVE (NEGATIVE)
[2020-03-30 08:00] VITALS: BP 153/94
[2020-03-30] MEDS ORDERED: MAGNESIUM 2 G PREMIX 50 ML IV SCH (09:00)
[2020-03-30] MEDS: PHENOBARBITAL 30 MG TABLET PO SCH ×3 (09:10→17:53)
[2020-03-30] MEDS: AMLODIPINE 10MG TABLET PO SCH (09:10)
[2020-03-30] MEDS: CEFEPIME 1,000 MG in DEXTROSE 5% WATER 50 ML IV SCH (09:18)
[2020-03-30 10:12] LABS: BG BASE EXCESS -3.9 mmol/L (-2.0-2.0); BG CARBOXYHEMOGLOBIN 0.7 % (0.5-1.5); BG DEOXYHEMOGLOBIN 7.2 % (0.0-5.0); BG HCO3 ACT 21.1 mmol/L (22.0-26.0); BG METHEMOGLOBIN 0.3 % (0.0-1.5); BG OXYGEN SATURATION 92.7 % (92.0-98.5); BG OXYHEMOGLOBIN 91.8 % (94.0-97.0); BG PCO2 37.9 mmHg (35.0-45.0); BG PH 7.363 (7.350-7.450); BG PO2 67.2 mmHg (75.0-100.0); BG SAMPLE SITE RIGHT RADIAL; BG TOTAL HEMOGLOBIN 12.1 g/dL (12.0-18.0); BG VENT MODE ROOM AIR
[2020-03-30] MEDS: SODIUM CHLORIDE 0.9% 1,000 ML IV SCH ×4 (11:56→22:15)
[2020-03-30 12:00] VITALS: BP 151/89
[2020-03-30] MEDS ORDERED: LIDOCAINE HCL/PF 1% 2ML VIAL ONE (12:00)
[2020-03-30] MEDS ORDERED: VANCOMYCIN 1 G PREMIX 200 ML IV NR (13:00)
[2020-03-30] MEDS ORDERED: DOXY100C2 MT (13:53)
[2020-03-30] MEDS ORDERED: AMOX1TAB16 MT (13:53)
[2020-03-30] MEDS: METRONIDAZOLE 500MG TABLET PO SCH ×2 (14:37→22:14)
[2020-03-30 16:00] VITALS: BP 152/84
[2020-03-30] MEDS: DAPTOMYCIN 500 MG in SODIUM CHLORIDE 0.9% 50 ML IV SCH (17:48)
[2020-03-30 20:00] VITALS: BP 135/79
[2020-03-31] VITALS: BP 158/90
[2020-03-31 04:00] VITALS: BP 148/87
[2020-03-31] MEDS: LEVETIRACETAM 500MG TABLET PO SCH (05:38)
[2020-03-31] MEDS: METRONIDAZOLE 500MG TABLET PO SCH ×3 (05:38→21:58)
[2020-03-31] MEDS: OMEPRAZOLE 20MG CAPSULE EXTENDED RELEASE PO SCH (05:38)
[2020-03-31] MEDS: HYDROMORPHONE HCL/PF 2MG/ML CPJ IV PRN ×3 (06:06→20:18)
[2020-03-31 06:37] LABS: BASOPHILS % 0.5 % (0.0-2.0); HEMATOCRIT. 33.6 % (36.0-48.0); HEMOGLOBIN. 11.5 g/dL (12.0-16.0); LYMPHOCYTES % 23.8 % (20.0-50.0); MEAN CORPUSCULAR HEMOGLOBIN 36.9 pg (28.0-32.0); MEAN CORPUSCULAR VOLUME 107.9 fL (81.0-99.0); MEAN PLATELET VOLUME 9.2 fl (7.4-10.4); MONOCYTES % 14.9 % (2.0-8.0); NEUTROPHILS % 59.8 % (40.0-76.0); PLATELET 112 x1000/uL (130-400); RED BLOOD CELL COUNT 3.11 mill/uL (4.2-5.4); RED CELL DISTRIBUTION WIDTH 14.7 % (11.6-14.6)
[2020-03-31 06:43] LABS: CHLORIDE 112 mEq/L (98-107)
[2020-03-31 06:52] LABS: PHOSPHORUS 3.3 mg/dL (2.5-4.9)
[2020-03-31 08:00] VITALS: BP 136/76
[2020-03-31] MEDS: PHENOBARBITAL 30 MG TABLET PO SCH (09:00)
[2020-03-31] MEDS: AMLODIPINE 10MG TABLET PO SCH (09:00)
[2020-03-31] MEDS: SODIUM CHLORIDE 0.9% 1,000 ML IV SCH (09:01)
[2020-03-31] MEDS: CEFEPIME 1,000 MG in DEXTROSE 5% WATER 50 ML IV SCH (09:01)
[2020-03-31 12:00] VITALS: BP 146/80
[2020-03-31] MEDS: DAPTOMYCIN 500 MG in SODIUM CHLORIDE 0.9% 50 ML IV SCH (15:01)
[2020-03-31 16:00] VITALS: BP 142/84
[2020-03-31 20:00] VITALS: BP 172/102
[2020-03-31] MEDS: CLONIDINE 0.1MG TABLET PO PRN (20:18)
[2020-04-01] VITALS (7 sets, daily range): BP systolic 132–164; BP diastolic 72–95
[2020-04-01] MEDS: SODIUM CHLORIDE 0.9% 1,000 ML IV SCH ×2 (04:04→16:14)
[2020-04-01] MEDS: HYDROMORPHONE HCL/PF 2MG/ML CPJ IV PRN ×4 (04:04→23:05)
[2020-04-01] MEDS: METRONIDAZOLE 500MG TABLET PO SCH ×3 (05:49→22:39)
[2020-04-01] MEDS: OMEPRAZOLE 20MG CAPSULE EXTENDED RELEASE PO SCH (05:49)
[2020-04-01] MEDS: LEVETIRACETAM 500MG TABLET PO SCH ×2 (05:50→17:07)
[2020-04-01] MEDS: LEVOFLOXACIN 250MG TABLET PO SCH (05:50)
[2020-04-01 06:03] LABS: HEMATOCRIT. 35.5 % (36.0-48.0); HEMOGLOBIN. 12.1 g/dL (12.0-16.0); MEAN CORPUSCULAR HEMOGLOBIN 37.1 pg (28.0-32.0); MEAN CORPUSCULAR VOLUME 108.9 fL (81.0-99.0); MEAN PLATELET VOLUME 9.4 fl (7.4-10.4); PLATELET 150 x1000/uL (130-400); RED BLOOD CELL COUNT 3.26 mill/uL (4.2-5.4); RED CELL DISTRIBUTION WIDTH 14.6 % (11.6-14.6)
[2020-04-01 06:18] LABS: PHOSPHORUS 3.2 mg/dL (2.5-4.9)
[2020-04-01] MEDS: CEFEPIME 1,000 MG in DEXTROSE 5% WATER 50 ML IV SCH (09:09)
[2020-04-01] MEDS: AMLODIPINE 10MG TABLET PO SCH (09:10)
[2020-04-01 10:09] LABS: PLATELET ESTIMATE NORMAL
[2020-04-01] MEDS: PREDNISONE 20MG TABLET PO SCH (13:52)
[2020-04-01] MEDS: CLONIDINE 0.1MG TABLET PO PRN (16:14)
[2020-04-01] MEDS ORDERED: MAGNESIUM 2 G PREMIX 50 ML IV NR (20:00)
[2020-04-01] MEDS: AMOXICILLIN/POTASSIUM CLAVULANATE 500/125MG TAB PO SCH (21:00)
[2020-04-02] VITALS: BP 143/76
[2020-04-02 04:00] VITALS: BP 140/80
[2020-04-02] MEDS: LEVETIRACETAM 500MG TABLET PO SCH ×2 (06:16→18:04)
[2020-04-02] MEDS: HYDROMORPHONE HCL/PF 2MG/ML CPJ IV PRN ×3 (06:17→18:05)
[2020-04-02 07:02] LABS: HEMATOCRIT. 33.6 % (36.0-48.0); HEMOGLOBIN. 11.3 g/dL (12.0-16.0); MEAN CORPUSCULAR HEMOGLOBIN 36.4 pg (28.0-32.0); MEAN CORPUSCULAR VOLUME 108.3 fL (81.0-99.0); MEAN PLATELET VOLUME 9.2 fl (7.4-10.4); PLATELET 184 x1000/uL (130-400); RED CELL DISTRIBUTION WIDTH 14.8 % (11.6-14.6)
[2020-04-02 07:19] LABS: PHOSPHORUS 3.2 mg/dL (2.5-4.9)
[2020-04-02 08:00] VITALS: BP 155/81
[2020-04-02 08:36] LABS: PLATELET ESTIMATE NORMAL
[2020-04-02] MEDS: PREDNISONE 20MG TABLET PO SCH (09:17)
[2020-04-02] MEDS: AMOXICILLIN/POTASSIUM CLAVULANATE 500/125MG TAB PO SCH ×2 (09:17→20:46)
[2020-04-02] MEDS: AMLODIPINE 10MG TABLET PO SCH (09:17)
[2020-04-02] MEDS: FAMOTIDINE 20MG TABLET PO SCH (09:19)
[2020-04-02 12:00] VITALS: BP 145/62
[2020-04-02 16:00] VITALS: BP 116/71
[2020-04-02 16:08] LABS: HEPATITIS B SURFACE ANTIGEN NEGATIVE
[2020-04-02] MEDS: COLCHICINE 0.6MG TABLET PO SCH (18:04)
[2020-04-02] MEDS: SODIUM CHLORIDE 0.9% 1,000 ML IV SCH (18:50)
[2020-04-02 20:00] VITALS: BP 132/84
[2020-04-03] VITALS: BP 118/70
[2020-04-03] MEDS: HYDROMORPHONE HCL/PF 2MG/ML CPJ IV PRN ×4 (00:12→18:25)
[2020-04-03 04:00] VITALS: BP 144/77
[2020-04-03] MEDS: LEVOFLOXACIN 250MG TABLET PO SCH (04:25)
[2020-04-03] MEDS: LEVETIRACETAM 500MG TABLET PO SCH ×2 (06:12→18:23)
[2020-04-03 08:00] VITALS: BP 145/71
[2020-04-03 09:23] LABS: HEMATOCRIT. 36.2 % (36.0-48.0); HEMOGLOBIN. 12.3 g/dL (12.0-16.0); MEAN CORPUSCULAR HEMOGLOBIN 36.5 pg (28.0-32.0); MEAN PLATELET VOLUME 9.4 fl (7.4-10.4); PLATELET 245 x1000/uL (130-400); RED BLOOD CELL COUNT 3.35 mill/uL (4.2-5.4); RED CELL DISTRIBUTION WIDTH 14.4 % (11.6-14.6)
[2020-04-03 09:24] LABS: PHOSPHORUS 2.8 mg/dL (2.5-4.9)
[2020-04-03] MEDS: AMLODIPINE 10MG TABLET PO SCH ×2 (09:35→18:24)
[2020-04-03] MEDS: FAMOTIDINE 20MG TABLET PO SCH (09:35)
[2020-04-03] MEDS: PREDNISONE 20MG TABLET PO SCH (09:35)
[2020-04-03] MEDS: COLCHICINE 0.6MG TABLET PO SCH (09:36)
[2020-04-03] MEDS: AMOXICILLIN/POTASSIUM CLAVULANATE 500/125MG TAB PO SCH ×2 (09:36→21:58)
[2020-04-03 12:00] VITALS: BP 153/85
[2020-04-03 14:00] LABS: PLATELET ESTIMATE NORMAL
[2020-04-03] MEDS: SODIUM CHLORIDE 0.9% 1,000 ML IV SCH (14:16)
[2020-04-03] MEDS ORDERED: HYDROMORPHONE HCL/PF 2MG/ML CPJ IV PRN (14:30)
[2020-04-03] MEDS ORDERED: OXYCODONE HCL/ACETAMINOPHEN 5/325MG TABLET PO SCH (15:00)
[2020-04-03] MEDS ORDERED: OXYCODONE HCL/ACETAMINOPHEN 5/325MG TABLET PO PRN (15:00)
[2020-04-03] MEDS ORDERED: NALOXONE HCL 0.4 MG/ML 1ML VIAL IV PRN (15:00)
[2020-04-03 16:00] VITALS: BP 150/75
[2020-04-03] MEDS ORDERED: POTASSIUM CHLORIDE 20MEQ TABLET SR PO NR (17:36)
[2020-04-03] MEDS: OXYCODONE HCL 5MG TABLET PO SCH (18:24)
[2020-04-03 20:00] VITALS: BP 153/89
[2020-04-03] MEDS ORDERED: MAGNESIUM 2 G PREMIX 50 ML IV NR (20:00)
[2020-04-04] VITALS: BP 141/75
[2020-04-04] MEDS: OXYCODONE HCL 5MG TABLET PO SCH ×4 (00:33→17:30)
[2020-04-04 04:00] VITALS: BP 134/76
[2020-04-04] MEDS: HYDROMORPHONE HCL/PF 2MG/ML CPJ IV PRN ×3 (05:41→20:29)
[2020-04-04] MEDS: LEVETIRACETAM 500MG TABLET PO SCH ×2 (05:47→17:30)
[2020-04-04 06:03] LABS: BASOPHILS % 0.9 % (0.0-2.0); EOSINOPHILS % 0.9 % (0.0-5.0); HEMATOCRIT. 35.2 % (36.0-48.0); HEMOGLOBIN. 11.9 g/dL (12.0-16.0); LYMPHOCYTES % 27.5 % (20.0-50.0); MEAN CORPUSCULAR HEMOGLOBIN 36.4 pg (28.0-32.0); MEAN CORPUSCULAR VOLUME 107.4 fL (81.0-99.0); MEAN PLATELET VOLUME 9.2 fl (7.4-10.4); NEUTROPHILS % 57.7 % (40.0-76.0); PLATELET 290 x1000/uL (130-400); RED BLOOD CELL COUNT 3.28 mill/uL (4.2-5.4)
[2020-04-04 06:25] LABS: PHOSPHORUS 3.1 mg/dL (2.5-4.9)
[2020-04-04 08:00] VITALS: BP 149/92
[2020-04-04] MEDS: AMLODIPINE 10MG TABLET PO SCH ×2 (08:53→20:23)
[2020-04-04] MEDS: FAMOTIDINE 20MG TABLET PO SCH (08:54)
[2020-04-04] MEDS: COLCHICINE 0.6MG TABLET PO SCH (08:54)
[2020-04-04] MEDS: PREDNISONE 20MG TABLET PO SCH (08:54)
[2020-04-04] MEDS: AMOXICILLIN/POTASSIUM CLAVULANATE 500/125MG TAB PO SCH ×2 (08:54→20:24)
[2020-04-04 12:00] VITALS: BP 146/90
[2020-04-04 20:00] VITALS: BP 140/96
[2020-04-05] VITALS: BP 150/87
[2020-04-05] MEDS: OXYCODONE HCL 5MG TABLET PO SCH ×4 (00:14→17:14)
[2020-04-05 04:00] VITALS: BP 156/85
[2020-04-05] MEDS: LEVOFLOXACIN 250MG TABLET PO SCH (04:01)
[2020-04-05] MEDS: HYDROMORPHONE HCL/PF 2MG/ML CPJ IV PRN ×3 (04:42→22:33)
[2020-04-05] MEDS: LEVETIRACETAM 500MG TABLET PO SCH ×2 (05:19→17:13)
[2020-04-05 06:14] LABS: BASOPHILS % 0.6 % (0.0-2.0); EOSINOPHILS % 0.7 % (0.0-5.0); HEMATOCRIT. 36.5 % (36.0-48.0); HEMOGLOBIN. 12.3 g/dL (12.0-16.0); LYMPHOCYTES % 30.4 % (20.0-50.0); MEAN CORPUSCULAR HEMOGLOBIN 36.2 pg (28.0-32.0); MEAN CORPUSCULAR VOLUME 107.4 fL (81.0-99.0); MONOCYTES % 11.7 % (2.0-8.0); NEUTROPHILS % 56.6 % (40.0-76.0); PLATELET 338 x1000/uL (130-400); RED CELL DISTRIBUTION WIDTH 14.8 % (11.6-14.6)
[2020-04-05 06:28] LABS: CHLORIDE 111 mEq/L (98-107)
[2020-04-05 06:40] LABS: PHOSPHORUS 3.8 mg/dL (2.5-4.9)
[2020-04-05 08:00] VITALS: BP 142/78
[2020-04-05] MEDS: AMOXICILLIN/POTASSIUM CLAVULANATE 500/125MG TAB PO SCH ×2 (08:54→21:22)
[2020-04-05] MEDS: COLCHICINE 0.6MG TABLET PO SCH (08:54)
[2020-04-05] MEDS: PREDNISONE 20MG TABLET PO SCH (08:54)
[2020-04-05] MEDS: FAMOTIDINE 20MG TABLET PO SCH (08:55)
[2020-04-05] MEDS: AMLODIPINE 10MG TABLET PO SCH ×2 (08:55→21:22)
[2020-04-05 12:00] VITALS: BP 148/80
[2020-04-05] MEDS ORDERED: POTASSIUM CHLORIDE 20MEQ TABLET SR PO NR (14:00)
[2020-04-05 16:00] VITALS: BP 114/69
[2020-04-05] MEDS ORDERED: MAGNESIUM 2 G PREMIX 50 ML IV SCH (16:00)
[2020-04-05 20:00] VITALS: BP 140/75
[2020-04-06] MEDS: OXYCODONE HCL 5MG TABLET PO SCH ×4 (00:13→18:00)
[2020-04-06] MEDS: LEVETIRACETAM 500MG TABLET PO SCH ×2 (05:41→18:24)
[2020-04-06] MEDS: HYDROMORPHONE HCL/PF 2MG/ML CPJ IV PRN ×2 (06:33→18:24)
[2020-04-06 06:36] VITALS: BP 161/99
[2020-04-06 07:07] LABS: BASOPHILS % 0.6 % (0.0-2.0); EOSINOPHILS % 0.6 % (0.0-5.0); HEMATOCRIT. 35.2 % (36.0-48.0); HEMOGLOBIN. 11.9 g/dL (12.0-16.0); LYMPHOCYTES % 29.3 % (20.0-50.0); MEAN CORPUSCULAR VOLUME 106.9 fL (81.0-99.0); MEAN PLATELET VOLUME 9.1 fl (7.4-10.4); MONOCYTES % 11.1 % (2.0-8.0); NEUTROPHILS % 58.4 % (40.0-76.0); PLATELET 359 x1000/uL (130-400); RED BLOOD CELL COUNT 3.29 mill/uL (4.2-5.4); RED CELL DISTRIBUTION WIDTH 15.3 % (11.6-14.6)
[2020-04-06 07:44] LABS: CHLORIDE 109 mEq/L (98-107)
[2020-04-06 07:54] LABS: PHOSPHORUS 4.1 mg/dL (2.5-4.9)
[2020-04-06 08:00] VITALS: BP 138/82
[2020-04-06] MEDS ORDERED: POTASSIUM CHLORIDE 20MEQ TABLET SR PO NR (09:00)
[2020-04-06] MEDS: AMOXICILLIN/POTASSIUM CLAVULANATE 500/125MG TAB PO SCH ×2 (09:29→21:55)
[2020-04-06] MEDS: FAMOTIDINE 20MG TABLET PO SCH (09:30)
[2020-04-06] MEDS: COLCHICINE 0.6MG TABLET PO SCH (09:30)
[2020-04-06] MEDS: AMLODIPINE 10MG TABLET PO SCH ×2 (09:30→21:55)
[2020-04-06] MEDS ORDERED: MAGNESIUM 2 G PREMIX 50 ML IV NR (10:00)
[2020-04-06 16:00] VITALS: BP 120/75
[2020-04-06 20:00] VITALS: BP 111/72
[2020-04-06] MEDS: LEVOFLOXACIN 250MG TABLET PO SCH (22:25)
[2020-04-07] VITALS: BP 121/75
[2020-04-07] MEDS: OXYCODONE HCL 5MG TABLET PO SCH ×4 (00:33→17:19)
[2020-04-07 04:00] VITALS: BP 144/81
[2020-04-07] MEDS: HYDROMORPHONE HCL/PF 2MG/ML CPJ IV PRN ×2 (06:37→21:08)
[2020-04-07] MEDS: LEVETIRACETAM 500MG TABLET PO SCH ×2 (06:37→17:18)
[2020-04-07 07:10] LABS: CHLORIDE 108 mEq/L (98-107)
[2020-04-07 07:15] LABS: PHOSPHORUS 4.9 mg/dL (2.5-4.9)
[2020-04-07 07:51] LABS: BASOPHILS % 0.9 % (0.0-2.0); HEMATOCRIT. 39.4 % (36.0-48.0); HEMOGLOBIN. 13.5 g/dL (12.0-16.0); LYMPHOCYTES % 23.3 % (20.0-50.0); MEAN CORPUSCULAR HEMOGLOBIN 36.3 pg (28.0-32.0); MEAN CORPUSCULAR VOLUME 106.2 fL (81.0-99.0); MEAN PLATELET VOLUME 9.5 fl (7.4-10.4); MONOCYTES % 9.8 % (2.0-8.0); PLATELET 378 x1000/uL (130-400); RED BLOOD CELL COUNT 3.71 mill/uL (4.2-5.4); RED CELL DISTRIBUTION WIDTH 14.7 % (11.6-14.6)
[2020-04-07 08:00] VITALS: BP 124/75
[2020-04-07] MEDS ORDERED: MAGNESIUM 4 G PREMIX 100 ML IV NR (09:00)
[2020-04-07] MEDS: MAGNESIUM OXIDE 400MG TABLET PO SCH ×2 (09:30→20:23)
[2020-04-07] MEDS: FAMOTIDINE 20MG TABLET PO SCH (09:30)
[2020-04-07] MEDS: AMOXICILLIN/POTASSIUM CLAVULANATE 500/125MG TAB PO SCH ×2 (09:30→20:23)
[2020-04-07] MEDS: COLCHICINE 0.6MG TABLET PO SCH (09:30)
[2020-04-07] MEDS: AMLODIPINE 10MG TABLET PO SCH ×2 (09:30→20:33)
[2020-04-07 12:00] VITALS: BP 134/85
[2020-04-07 16:00] VITALS: BP 116/62
[2020-04-07 20:00] VITALS: BP 130/77
[2020-04-07] MEDS: LEVOFLOXACIN 250MG TABLET PO SCH (20:31)
[2020-04-08] VITALS: BP 116/68
[2020-04-08] MEDS: OXYCODONE HCL 5MG TABLET PO SCH ×4 (00:21→17:20)
[2020-04-08 04:00] VITALS: BP 125/83
[2020-04-08] MEDS: LEVETIRACETAM 500MG TABLET PO SCH ×2 (06:03→17:20)
[2020-04-08 06:57] LABS: BASOPHILS % 0.7 % (0.0-2.0); EOSINOPHILS % 0.9 % (0.0-5.0); HEMATOCRIT. 35.6 % (36.0-48.0); HEMOGLOBIN. 12.4 g/dL (12.0-16.0); MEAN CORPUSCULAR HEMOGLOBIN 36.5 pg (28.0-32.0); MEAN CORPUSCULAR VOLUME 104.9 fL (81.0-99.0); MEAN PLATELET VOLUME 9.1 fl (7.4-10.4); MONOCYTES % 10.5 % (2.0-8.0); NEUTROPHILS % 65.9 % (40.0-76.0); PLATELET 384 x1000/uL (130-400); RED BLOOD CELL COUNT 3.39 mill/uL (4.2-5.4); RED CELL DISTRIBUTION WIDTH 15.3 % (11.6-14.6)
[2020-04-08 07:33] LABS: CHLORIDE 105 mEq/L (98-107)
[2020-04-08 07:40] LABS: PHOSPHORUS 4.2 mg/dL (2.5-4.9)
[2020-04-08 08:00] VITALS: BP 129/76
[2020-04-08] MEDS: AMOXICILLIN/POTASSIUM CLAVULANATE 500/125MG TAB PO SCH ×2 (09:39→21:25)
[2020-04-08] MEDS: COLCHICINE 0.6MG TABLET PO SCH (09:40)
[2020-04-08] MEDS: AMLODIPINE 10MG TABLET PO SCH ×2 (09:40→21:25)
[2020-04-08] MEDS: HYDROMORPHONE HCL/PF 2MG/ML CPJ IV PRN ×2 (09:40→21:41)
[2020-04-08] MEDS: FAMOTIDINE 20MG TABLET PO SCH (09:40)
[2020-04-08] MEDS: MAGNESIUM OXIDE 400MG TABLET PO SCH ×2 (09:40→21:25)
[2020-04-08 12:00] VITALS: BP 112/67
[2020-04-08 16:00] VITALS: BP 122/78
[2020-04-08 20:00] VITALS: BP 135/74
[2020-04-08] MEDS: LEVOFLOXACIN 250MG TABLET PO SCH (21:25)
[2020-04-09] VITALS: BP 110/77
[2020-04-09] MEDS ORDERED: OXYCODONE HCL 5MG TABLET PO PRN
[2020-04-09] MEDS: OXYCODONE HCL 5MG TABLET PO SCH ×5 (00:20→23:56)
[2020-04-09 04:00] VITALS: BP 129/77
[2020-04-09 06:11] LABS: BASOPHILS % 0.8 % (0.0-2.0); EOSINOPHILS % 1.3 % (0.0-5.0); HEMATOCRIT. 35.9 % (36.0-48.0); HEMOGLOBIN. 12.1 g/dL (12.0-16.0); LYMPHOCYTES % 22.4 % (20.0-50.0); MEAN CORPUSCULAR HEMOGLOBIN 35.7 pg (28.0-32.0); MEAN CORPUSCULAR VOLUME 105.6 fL (81.0-99.0); MONOCYTES % 11.1 % (2.0-8.0); NEUTROPHILS % 64.4 % (40.0-76.0); PLATELET 361 x1000/uL (130-400); RED CELL DISTRIBUTION WIDTH 14.9 % (11.6-14.6)
[2020-04-09] MEDS: LEVETIRACETAM 500MG TABLET PO SCH ×2 (06:17→18:13)
[2020-04-09 06:24] LABS: CHLORIDE 104 mEq/L (98-107)
[2020-04-09 08:00] VITALS: BP 122/73
[2020-04-09] MEDS: MAGNESIUM OXIDE 400MG TABLET PO SCH ×2 (08:58→21:14)
[2020-04-09] MEDS: FAMOTIDINE 20MG TABLET PO SCH (08:59)
[2020-04-09] MEDS: AMLODIPINE 10MG TABLET PO SCH ×2 (08:59→21:14)
[2020-04-09] MEDS: HYDROMORPHONE HCL/PF 2MG/ML CPJ IV PRN ×2 (08:59→21:03)
[2020-04-09] MEDS: COLCHICINE 0.6MG TABLET PO SCH (08:59)
[2020-04-09] MEDS: AMOXICILLIN/POTASSIUM CLAVULANATE 500/125MG TAB PO SCH ×2 (08:59→21:14)
[2020-04-09] MEDS ORDERED: POTASSIUM CHLORIDE 20MEQ TABLET SR PO NR (11:45)
[2020-04-09 12:00] VITALS: BP 120/74
[2020-04-09 16:00] VITALS: BP 129/73
[2020-04-09 20:00] VITALS: BP 127/73
[2020-04-09] MEDS: LEVOFLOXACIN 250MG TABLET PO SCH (21:30)
[2020-04-10] VITALS: BP 130/72
[2020-04-10 04:00] VITALS: BP 117/71
[2020-04-10] MEDS: OXYCODONE HCL 5MG TABLET PO SCH ×3 (06:04→17:31)
[2020-04-10] MEDS: LEVETIRACETAM 500MG TABLET PO SCH ×2 (06:04→17:31)
[2020-04-10 08:00] VITALS: BP 116/77
[2020-04-10] MEDS: FAMOTIDINE 20MG TABLET PO SCH (08:54)
[2020-04-10] MEDS: AMLODIPINE 10MG TABLET PO SCH ×2 (08:54→21:00)
[2020-04-10] MEDS: MAGNESIUM OXIDE 400MG TABLET PO SCH ×2 (08:54→21:40)
[2020-04-10] MEDS: COLCHICINE 0.6MG TABLET PO SCH (08:54)
[2020-04-10] MEDS: HYDROMORPHONE HCL/PF 2MG/ML CPJ IV PRN ×2 (08:55→21:22)
[2020-04-10 08:58] LABS: HEMATOCRIT. 38.6 % (36.0-48.0); HEMOGLOBIN. 13.1 g/dL (12.0-16.0); MEAN CORPUSCULAR HEMOGLOBIN 35.8 pg (28.0-32.0); MEAN CORPUSCULAR VOLUME 105.9 fL (81.0-99.0); MEAN PLATELET VOLUME 9.2 fl (7.4-10.4); PLATELET 355 x1000/uL (130-400); RED BLOOD CELL COUNT 3.64 mill/uL (4.2-5.4); RED CELL DISTRIBUTION WIDTH 14.8 % (11.6-14.6)
[2020-04-10 09:17] LABS: CHLORIDE 105 mEq/L (98-107)
[2020-04-10 09:27] LABS: PHOSPHORUS 4.3 mg/dL (2.5-4.9)
[2020-04-10 12:00] VITALS: BP 117/72
[2020-04-10] MEDS ORDERED: MAGNESIUM 2 G PREMIX 50 ML IV NR (14:30)
[2020-04-10 16:00] VITALS: BP 109/59
[2020-04-10 20:00] VITALS: BP 101/59
[2020-04-10] MEDS: LEVOFLOXACIN 250MG TABLET PO SCH (21:40)
[2020-04-11] VITALS: BP 100/55
[2020-04-11] MEDS: OXYCODONE HCL 5MG TABLET PO SCH ×4 (00:22→18:13)
[2020-04-11 04:00] VITALS: BP 122/62
[2020-04-11] MEDS: LEVETIRACETAM 500MG TABLET PO SCH ×2 (05:54→18:11)
[2020-04-11 08:00] VITALS: BP 121/51
[2020-04-11] MEDS: MAGNESIUM OXIDE 400MG TABLET PO SCH ×2 (09:02→21:02)
[2020-04-11] MEDS: FAMOTIDINE 20MG TABLET PO SCH (09:03)
[2020-04-11] MEDS: AMLODIPINE 10MG TABLET PO SCH ×2 (09:03→21:00)
[2020-04-11] MEDS: COLCHICINE 0.6MG TABLET PO SCH (09:03)
[2020-04-11 09:16] LABS: BASOPHILS % 1.2 % (0.0-2.0); EOSINOPHILS % 1.5 % (0.0-5.0); HEMOGLOBIN. 13.1 g/dL (12.0-16.0); LYMPHOCYTES % 35.6 % (20.0-50.0); MEAN CORPUSCULAR HEMOGLOBIN 35.2 pg (28.0-32.0); MEAN CORPUSCULAR VOLUME 107.3 fL (81.0-99.0); MEAN PLATELET VOLUME 9.1 fl (7.4-10.4); MONOCYTES % 12.6 % (2.0-8.0); NEUTROPHILS % 49.1 % (40.0-76.0); PLATELET 328 x1000/uL (130-400); RED BLOOD CELL COUNT 3.73 mill/uL (4.2-5.4); RED CELL DISTRIBUTION WIDTH 15.1 % (11.6-14.6)
[2020-04-11 09:20] LABS: CHLORIDE 105 mEq/L (98-107)
[2020-04-11 09:25] LABS: PHOSPHORUS 4.4 mg/dL (2.5-4.9)
[2020-04-11] MEDS: HYDROMORPHONE HCL/PF 2MG/ML CPJ IV PRN ×2 (09:37→21:37)
[2020-04-11 12:00] VITALS: BP 104/61
[2020-04-11 15:51] VITALS: BP 95/52
[2020-04-11 20:00] VITALS: BP 107/61
[2020-04-12] VITALS (7 sets, daily range): BP systolic 100–124; BP diastolic 60–79
[2020-04-12] MEDS: OXYCODONE HCL 5MG TABLET PO SCH ×4 (00:01→18:25)
[2020-04-12] MEDS: LEVETIRACETAM 500MG TABLET PO SCH ×2 (05:39→18:25)
[2020-04-12] MEDS: FAMOTIDINE 20MG TABLET PO SCH (09:38)
[2020-04-12] MEDS: AMLODIPINE 10MG TABLET PO SCH ×2 (09:38→20:42)
[2020-04-12] MEDS: MAGNESIUM OXIDE 400MG TABLET PO SCH ×2 (09:38→20:42)
[2020-04-12] MEDS: COLCHICINE 0.6MG TABLET PO SCH (09:38)
[2020-04-12] MEDS: HYDROMORPHONE HCL/PF 2MG/ML CPJ IV PRN ×2 (09:39→20:41)
[2020-04-13] MEDS: HYDROMORPHONE HCL/PF 2MG/ML CPJ IV PRN ×3 (04:19→20:22)
[2020-04-13 05:20] VITALS: BP 105/65
[2020-04-13] MEDS: LEVETIRACETAM 500MG TABLET PO SCH ×2 (06:06→17:41)
[2020-04-13] MEDS: OXYCODONE HCL 5MG TABLET PO SCH ×4 (06:07→17:41)
[2020-04-13 06:41] LABS: BASOPHILS % 0.9 % (0.0-2.0); EOSINOPHILS % 1.7 % (0.0-5.0); HEMATOCRIT. 36.4 % (36.0-48.0); HEMOGLOBIN. 12.2 g/dL (12.0-16.0); LYMPHOCYTES % 34.1 % (20.0-50.0); MEAN CORPUSCULAR VOLUME 104.3 fL (81.0-99.0); MEAN PLATELET VOLUME 9.6 fl (7.4-10.4); MONOCYTES % 11.9 % (2.0-8.0); NEUTROPHILS % 51.4 % (40.0-76.0); PLATELET 304 x1000/uL (130-400); RED BLOOD CELL COUNT 3.49 mill/uL (4.2-5.4)
[2020-04-13 06:48] LABS: CHLORIDE 106 mEq/L (98-107)
[2020-04-13 07:08] LABS: PHOSPHORUS 4.3 mg/dL (2.5-4.9)
[2020-04-13 08:00] VITALS: BP 104/53
[2020-04-13] MEDS: AMLODIPINE 10MG TABLET PO SCH ×2 (08:32→21:00)
[2020-04-13] MEDS: COLCHICINE 0.6MG TABLET PO SCH (09:06)
[2020-04-13] MEDS: MAGNESIUM OXIDE 400MG TABLET PO SCH ×2 (09:06→21:36)
[2020-04-13] MEDS: FAMOTIDINE 20MG TABLET PO SCH (09:06)
[2020-04-13 12:00] VITALS: BP 102/63
[2020-04-13 16:00] VITALS: BP 112/69
[2020-04-13 20:00] VITALS: BP 104/70
[2020-04-14] VITALS: BP 122/65
[2020-04-14] MEDS: OXYCODONE HCL 5MG TABLET PO SCH ×2 (00:14→18:38)
[2020-04-14 04:00] VITALS: BP 129/75
[2020-04-14] MEDS: LEVETIRACETAM 500MG TABLET PO SCH ×2 (05:42→18:38)
[2020-04-14 06:30] LABS: BASOPHILS % 1.2 % (0.0-2.0); EOSINOPHILS % 1.6 % (0.0-5.0); HEMATOCRIT. 37.4 % (36.0-48.0); HEMOGLOBIN. 12.7 g/dL (12.0-16.0); MEAN CORPUSCULAR HEMOGLOBIN 35.3 pg (28.0-32.0); MEAN CORPUSCULAR VOLUME 104.5 fL (81.0-99.0); MEAN PLATELET VOLUME 10.1 fl (7.4-10.4); MONOCYTES % 11.4 % (2.0-8.0); NEUTROPHILS % 48.8 % (40.0-76.0); PLATELET 252 x1000/uL (130-400); RED BLOOD CELL COUNT 3.58 mill/uL (4.2-5.4); RED CELL DISTRIBUTION WIDTH 14.9 % (11.6-14.6)
[2020-04-14 06:59] LABS: CHLORIDE 106 mEq/L (98-107)
[2020-04-14 08:00] VITALS: BP 143/73
[2020-04-14] MEDS: AMLODIPINE 10MG TABLET PO SCH ×2 (08:43→21:57)
[2020-04-14] MEDS: MAGNESIUM OXIDE 400MG TABLET PO SCH ×2 (08:43→21:57)
[2020-04-14] MEDS: COLCHICINE 0.6MG TABLET PO SCH (08:43)
[2020-04-14] MEDS: FAMOTIDINE 20MG TABLET PO SCH (08:43)
[2020-04-14] MEDS: HYDROMORPHONE HCL/PF 2MG/ML CPJ IV PRN ×2 (08:44→21:58)
[2020-04-14 12:00] VITALS: BP 106/67
[2020-04-14 16:00] VITALS: BP 108/66
[2020-04-14 20:00] VITALS: BP 137/84
[2020-04-15] VITALS: BP 112/73
[2020-04-15] MEDS: OXYCODONE HCL 5MG TABLET PO SCH ×4 (01:14→18:32)
[2020-04-15 04:00] VITALS: BP 115/70
[2020-04-15 06:43] LABS: BASOPHILS % 1.2 % (0.0-2.0); EOSINOPHILS % 1.8 % (0.0-5.0); HEMATOCRIT. 37.9 % (36.0-48.0); HEMOGLOBIN. 13.1 g/dL (12.0-16.0); LYMPHOCYTES % 41.1 % (20.0-50.0); MEAN CORPUSCULAR HEMOGLOBIN 35.8 pg (28.0-32.0); MEAN PLATELET VOLUME 9.7 fl (7.4-10.4); MONOCYTES % 10.9 % (2.0-8.0); PLATELET 261 x1000/uL (130-400); RED BLOOD CELL COUNT 3.67 mill/uL (4.2-5.4); RED CELL DISTRIBUTION WIDTH 14.9 % (11.6-14.6)
[2020-04-15 06:48] LABS: CHLORIDE 107 mEq/L (98-107)
[2020-04-15 06:58] LABS: PHOSPHORUS 4.2 mg/dL (2.5-4.9)
[2020-04-15] MEDS: LEVETIRACETAM 500MG TABLET PO SCH ×2 (07:03→18:32)
[2020-04-15 08:00] VITALS: BP 114/70
[2020-04-15] MEDS: MAGNESIUM OXIDE 400MG TABLET PO SCH ×2 (09:11→20:28)
[2020-04-15] MEDS: FAMOTIDINE 20MG TABLET PO SCH (09:12)
[2020-04-15] MEDS: AMLODIPINE 10MG TABLET PO SCH ×2 (09:12→20:31)
[2020-04-15] MEDS: COLCHICINE 0.6MG TABLET PO SCH (09:12)
[2020-04-15] MEDS: HYDROMORPHONE HCL/PF 2MG/ML CPJ IV PRN ×2 (11:17→23:49)
[2020-04-15 12:00] VITALS: BP 111/68
[2020-04-15 16:00] VITALS: BP 117/71
[2020-04-15 20:00] VITALS: BP 125/72
[2020-04-16] VITALS: BP 118/73
[2020-04-16] MEDS: OXYCODONE HCL 5MG TABLET PO SCH ×2 (00:30→05:53)
[2020-04-16 04:00] VITALS: BP 118/68
[2020-04-16] MEDS: LEVETIRACETAM 500MG TABLET PO SCH ×2 (05:50→17:12)
[2020-04-16 08:34] LABS: BASOPHILS % 1.1 % (0.0-2.0); EOSINOPHILS % 1.2 % (0.0-5.0); HEMATOCRIT. 39.7 % (36.0-48.0); HEMOGLOBIN. 13.4 g/dL (12.0-16.0); LYMPHOCYTES % 46.7 % (20.0-50.0); MEAN CORPUSCULAR HEMOGLOBIN 35.4 pg (28.0-32.0); MEAN PLATELET VOLUME 10.1 fl (7.4-10.4); MONOCYTES % 13.4 % (2.0-8.0); NEUTROPHILS % 37.6 % (40.0-76.0); PLATELET 235 x1000/uL (130-400); RED BLOOD CELL COUNT 3.78 mill/uL (4.2-5.4); RED CELL DISTRIBUTION WIDTH 14.5 % (11.6-14.6)
[2020-04-16 08:38] LABS: CHLORIDE 106 mEq/L (98-107)
[2020-04-16 08:45] LABS: PHOSPHORUS 4.3 mg/dL (2.5-4.9)
[2020-04-16] MEDS: MAGNESIUM OXIDE 400MG TABLET PO SCH ×2 (08:53→21:20)
[2020-04-16] MEDS: COLCHICINE 0.6MG TABLET PO SCH (08:53)
[2020-04-16] MEDS: AMLODIPINE 10MG TABLET PO SCH ×2 (08:53→21:20)
[2020-04-16] MEDS: FAMOTIDINE 20MG TABLET PO SCH (08:53)
[2020-04-16] MEDS: HYDROMORPHONE HCL/PF 2MG/ML CPJ IV PRN (11:50)
[2020-04-16 12:00] VITALS: BP 105/55
[2020-04-16 16:00] VITALS: BP 133/71
[2020-04-16] MEDS: OXYCODONE HCL 5MG TABLET PO PRN ×2 (17:14→23:31)
[2020-04-16 20:00] VITALS: BP 129/66
[2020-04-16] MEDS: DIPHENHYDRAMINE 50MG/ML VIAL IV PRN (23:29)
[2020-04-17] VITALS: BP 118/78
[2020-04-17 04:00] VITALS: BP 123/61
[2020-04-17] MEDS: LEVETIRACETAM 500MG TABLET PO SCH ×2 (05:39→17:59)
[2020-04-17] MEDS: OXYCODONE HCL 5MG TABLET PO PRN ×3 (05:40→17:59)
[2020-04-17 08:00] VITALS: BP 108/61
[2020-04-17] MEDS: AMLODIPINE 10MG TABLET PO SCH ×2 (09:00→20:45)
[2020-04-17] MEDS: MAGNESIUM OXIDE 400MG TABLET PO SCH ×2 (09:14→20:45)
[2020-04-17] MEDS: FAMOTIDINE 20MG TABLET PO SCH (09:14)
[2020-04-17] MEDS: COLCHICINE 0.6MG TABLET PO SCH (09:14)
[2020-04-17 12:00] VITALS: BP 120/71
[2020-04-17] MEDS ORDERED: LORAZEPAM 0.5MG TABLET PO PRN (15:15)
[2020-04-17 16:00] VITALS: BP 124/59
[2020-04-17 20:00] VITALS: BP 127/72
[2020-04-17] MEDS: DIPHENHYDRAMINE 50MG/ML VIAL IV PRN ×2 (20:45→22:25)
[2020-04-18] VITALS: BP 114/58
[2020-04-18 04:00] VITALS: BP 113/68
[2020-04-18] MEDS: OXYCODONE HCL 5MG TABLET PO PRN (06:39)
[2020-04-18] MEDS: LEVETIRACETAM 500MG TABLET PO SCH (06:39)
[2020-04-18 08:00] VITALS: BP 110/66
[2020-04-18] MEDS ORDERED: HYDROCODONE/ACETAMINOPHEN 10/325MG TABLET PO PRN (08:30)
[2020-04-18] MEDS: AMLODIPINE 10MG TABLET PO SCH (08:37)
[2020-04-18] MEDS: MAGNESIUM OXIDE 400MG TABLET PO SCH (08:37)
[2020-04-18] MEDS: FAMOTIDINE 20MG TABLET PO SCH (08:37)
[2020-04-18] MEDS: COLCHICINE 0.6MG TABLET PO SCH (08:37)
[2020-04-18 12:00] VITALS: BP 98/70
[2020-04-18] MEDS ORDERED: HYDR-3280 MT (13:07)
[2020-04-18] MEDS ORDERED: HYDR-4009 MT (13:09)
[2020-04-18] MEDS ORDERED: GABAPENTIN 300MG CAPSULE PO SCH (14:00)
[2020-04-18 14:06] VITALS: BP 98/70
== END 2020-04-18 14:46 | disposition home health service (06) | DRG 711 ==
LOC: ER 07:58 → 6EST 10:34 → EDBEDREQ 10:39 → EDBEDREQTM 10:39 → ENRESERV 13:23
PROVIDERS: ADMIT Internal Medicine; ATTEND Internal Medicine
PROC: 0J970ZZ Drainage of Back Subcutaneous Tissue and Fascia, Open Approach (ICD-10-PCS; principal; 2020-03-28)
DX: T81.41XA Infection following a procedure, superficial incisional surgical site, initial encounter (principal); N17.9 Acute kidney failure, unspecified; E43 Unspecified severe protein-calorie malnutrition; E11.9 Type 2 diabetes mellitus without complications; E87.2 Acidosis; G40.909 Epilepsy, unspecified, not intractable, without status epilepticus; I48.91 Unspecified atrial fibrillation; T81.44XA Sepsis following a procedure, initial encounter; I10 Essential (primary) hypertension; L02.416 Cutaneous abscess of left lower limb; Z90.710 Acquired absence of both cervix and uterus; K74.60 Unspecified cirrhosis of liver; D64.9 Anemia, unspecified; E78.5 Hyperlipidemia, unspecified; H54.8 Legal blindness, as defined in USA; R26.9 Unspecified abnormalities of gait and mobility; J44.9 Chronic obstructive pulmonary disease, unspecified; M10.9 Gout, unspecified; R65.20 Severe sepsis without septic shock; Y83.8 Other surgical procedures as the cause of abnormal reaction of the patient, or of later complication, without mention of misadventure at the time of the procedure; T50.8X5A Adverse effect of diagnostic agents, initial encounter; B96.7 Clostridium perfringens [C. perfringens] as the cause of diseases classified elsewhere; Z20.828 Contact with and (suspected) exposure to other viral communicable diseases; T81.33XA Disruption of traumatic injury wound repair, initial encounter; Y93.89 Activity, other specified; Y92.89 Other specified places as the place of occurrence of the external cause; Y99.8 Other external cause status; Z82.49 Family history of ischemic heart disease and other diseases of the circulatory system; Z83.3 Family history of diabetes mellitus; Z79.899 Other long term (current) drug therapy; Z68.24 Body mass index [BMI] 24.0-24.9, adult; Z88.5 Allergy status to narcotic agent; Z88.8 Allergy status to other drugs, medicaments and biological substances
CPT/HCPCS: 36415; 36600; 71045; 72193; 73502; 73610; 76700; 80048; 80053; 80061; 80202; 81003; 82306; 82375; 82550; 82607; 82746; 82805; 82962; 83605; 83735; 84100; 84145; 84443; 84550; 85025; 85651; 86140; 86705; 86709; 86803; 86850; 86900; 87070; 87075; 87076; 87077; 87186; 87340; 87426; 93005; 93970; 97116; 97162; 97164; 97166; 97168; 97530; 97535; 99285; C1893; J0330; J0692; J0878; J1170; J1200; J2250; J2270; J2405; J2543; J2704; J2765; J3010; J3370; J3475; J3490; J7030; J7042; J7060; J7512; Q9967; A4315

== ENCOUNTER 2021-03-27 05:10 | Emergency (ER) | payer MEDICARE, MEDICAID ==
[~2021-03-27] VITALS: Ht 175.3 cm; Wt 70.0 kg
[~2021-03-27 05:10] MED LIST changes: -ASPI-1158 PO; +ASPI-1406 PO; +HYDR-4009 MT
[2021-03-27] MEDS ORDERED: MORPHINE SULFATE 4 MG/ML CPJ (NOT FOR IM USE) IV STA (06:04)
[2021-03-27 06:41] LABS: BASOPHILS % 0.5 % (0.0-2.0); EOSINOPHILS % 0.2 % (0.0-5.0); HEMATOCRIT. 40.3 % (36.0-48.0); HEMOGLOBIN. 13.7 g/dL (12.0-16.0); LYMPHOCYTES % 16.5 % (20.0-50.0); MEAN CORPUSCULAR VOLUME 105.8 fL (81.0-99.0); MONOCYTES % 9.7 % (2.0-8.0); NEUTROPHILS % 73.1 % (40.0-76.0); PLATELET 163 x1000/uL (130-400); RED BLOOD CELL COUNT 3.81 mill/uL (4.2-5.4); RED CELL DISTRIBUTION WIDTH 13.4 % (11.6-14.6)
[2021-03-27 06:58] LABS: CLARITY URINE CLEAR (CLEAR); COLOR URINE YELLOW (YELLOW); KETONES URINE 1+ (NEGATIVE); LEUKOCYTE ESTERASE URINE NEGATIVE (NEGATIVE); NITRITE URINE NEGATIVE (NEGATIVE); OCCULT BLOOD URINE NEGATIVE (NEGATIVE); PROTEIN URINE 1+ (NEGATIVE); SPECIFIC GRAVITY URINE 1.008 (1.005-1.030); UROBILINOGEN URINE 0.2 E.U./dL (0.2-1.0)
[2021-03-27 07:57] LABS: CHLORIDE 110 mEq/L (98-107)
[2021-03-27] MEDS ORDERED: KCL 10MEQ/50ML PREMIX 50 ML IV STA (08:56)
[2021-03-27] MEDS ORDERED: MORPHINE SULFATE 4 MG/ML CPJ (NOT FOR IM USE) IV ONE (10:00)
[2021-03-27] MEDS ORDERED: HYDR-4001 MT (12:38)
[2021-03-27] MEDS ORDERED: HYDROMORPHONE HCL/PF 2MG/ML CPJ IV ONE (12:45)
[2021-03-27] MEDS ORDERED: IOHEXOL-300 100 ML BOTTLE ONE (13:17)
[2021-03-27 14:20] VITALS: BP 128/78
== END 2021-03-27 14:35 | disposition home or self-care (01) ==
LOC: ER 05:10
DX: G89.18 Other acute postprocedural pain (principal); K46.9 Unspecified abdominal hernia without obstruction or gangrene; I10 Essential (primary) hypertension; E87.1 Hypo-osmolality and hyponatremia; E11.9 Type 2 diabetes mellitus without complications; Z98.890 Other specified postprocedural states; Z79.899 Other long term (current) drug therapy; Z88.5 Allergy status to narcotic agent
CPT/HCPCS: 36415; 74177; 80053; 81003; 83690; 85025; 96361; 96374; 96375; 96376; 99285; J1170; J2270; J3480; Q9967

== ENCOUNTER 2021-04-09 03:20 | Inpatient (IN) | payer MEDICARE, MEDICAID ==
[~2021-04-09] VITALS: Ht 182.9 cm; Wt 81.6 kg
[~2021-04-09 03:20] MED LIST changes: +HYDR-4001 MT
[2021-04-09] MEDS ORDERED: FAMOTIDINE 20MG/2ML VIAL IV ONE (03:45)
[2021-04-09] MEDS ORDERED: DIPHENHYDRAMINE 50MG/ML VIAL IV ONE (03:45)
[2021-04-09] MEDS ORDERED: METHYLPREDNISOLONE SOD SUCC 125 MG/2 ML VIAL IV ONE (03:45)
[2021-04-09] MEDS ORDERED: EPINEPHRINE 1:1000 1 MG/ML AMP IM ONE (03:45)
[2021-04-09 04:26] LABS: BASOPHILS % 0.8 % (0.0-2.0); EOSINOPHILS % 0.6 % (0.0-5.0); HEMATOCRIT. 41.6 % (36.0-48.0); HEMOGLOBIN. 13.8 g/dL (12.0-16.0); LYMPHOCYTES % 27.7 % (20.0-50.0); MEAN CORPUSCULAR HEMOGLOBIN 34.5 pg (28.0-32.0); MEAN CORPUSCULAR VOLUME 103.7 fL (81.0-99.0); MEAN PLATELET VOLUME 9.9 fl (7.4-10.4); MONOCYTES % 6.2 % (2.0-8.0); NEUTROPHILS % 64.7 % (40.0-76.0); PLATELET 389 x1000/uL (130-400); RED BLOOD CELL COUNT 4.01 mill/uL (4.2-5.4); RED CELL DISTRIBUTION WIDTH 13.8 % (11.6-14.6)
[2021-04-09 04:58] LABS: CHLORIDE 104 mEq/L (98-107)
[2021-04-09] MEDS: ALBUTEROL (0.083%) 2.5MG/3ML NEB HHN SCH (05:44)
[2021-04-09] MEDS ORDERED: POTASSIUM CHLORIDE 20MEQ TABLET SR PO NR (05:45)
[2021-04-09] MEDS ORDERED: ACETAMINOPHEN 325MG TABLET PO ONE (09:15)
[2021-04-09 12:00] VITALS: BP 141/87
[2021-04-09] MEDS ORDERED: ONDANSETRON HCL 4MG/2ML INJ IV PRN (13:30)
[2021-04-09] MEDS ORDERED: POTASSIUM CHLORIDE 20MEQ TABLET SR PO SCH (13:30)
[2021-04-09] MEDS ORDERED: NALOXONE HCL 0.4MG/ML VIAL IV PRN (14:30)
[2021-04-09] MEDS: METHYLPREDNISOLONE SOD SUCC 40 MG/ML VIAL IV SCH ×2 (14:30→21:22)
[2021-04-09] MEDS: DIPHENHYDRAMINE 50MG/ML VIAL IV SCH ×2 (14:31→18:30)
[2021-04-09] MEDS: HYDROCODONE/ACETAMINOPHEN 5/325MG TABLET PO PRN ×2 (14:34→19:39)
[2021-04-09 15:46] VITALS: BP 141/87
[2021-04-09 16:45] VITALS: BP 169/93
[2021-04-09] MEDS: FAMOTIDINE 20MG TABLET PO SCH (17:04)
[2021-04-09] MEDS ORDERED: MAGNESIUM 4 G PREMIX 100 ML IV NR (17:45)
[2021-04-09 17:48] LABS: *BENZODIAZEPINES SCREEN URINE NEGATIVE (NEGATIVE); *COCAINE SCREEN URINE NEGATIVE (NEGATIVE); CANNABINOID URINE SCREEN NEGATIVE (NEGATIVE); METHADONE URINE SCREEN NEGATIVE (NEGATIVE); OPIATES URINE SCREEN NEGATIVE (NEGATIVE); PHENCYCLIDINE URINE SCREEN NEGATIVE (NEGATIVE)
[2021-04-09 17:49] LABS: *AMPHETAMINES SCREEN URINE NEGATIVE (NEGATIVE); *BARBITURATES SCREEN URINE PRESUMTIVE POSITIVE (NEGATIVE)
[2021-04-09 20:00] VITALS: BP 166/95
[2021-04-09] MEDS ORDERED: CLONIDINE 0.1MG TABLET PO PRN (20:00)
[2021-04-09] MEDS ORDERED: HYDRALAZINE 20MG/ML VIAL IV PRN (21:15)
[2021-04-10] VITALS (7 sets, daily range): BP systolic 144–158; BP diastolic 84–96
[2021-04-10] MEDS: DIPHENHYDRAMINE 50MG/ML VIAL IV SCH ×3 (00:48→12:39)
[2021-04-10] MEDS: METHYLPREDNISOLONE SOD SUCC 40 MG/ML VIAL IV SCH ×2 (05:35→14:54)
[2021-04-10] MEDS: HYDROCODONE/ACETAMINOPHEN 5/325MG TABLET PO PRN ×2 (07:38→11:31)
[2021-04-10 07:58] LABS: CHLORIDE 107 mEq/L (98-107)
[2021-04-10] MEDS: FAMOTIDINE 20MG TABLET PO SCH (08:39)
[2021-04-10] MEDS ORDERED: P20 MT (15:02)
[2021-04-10] MEDS ORDERED: T3 PO (15:02)
== END 2021-04-10 17:20 | disposition home or self-care (01) | DRG 916 ==
LOC: ER 03:20 → 6WST 07:39 → EDBEDREQ 11:39 → ENRESERV 11:41
PROVIDERS: ADMIT Internal Medicine; ATTEND Internal Medicine
DX: T78.3XXA Angioneurotic edema, initial encounter (principal); E11.9 Type 2 diabetes mellitus without complications; J44.9 Chronic obstructive pulmonary disease, unspecified; I10 Essential (primary) hypertension; Z88.6 Allergy status to analgesic agent; Z88.5 Allergy status to narcotic agent; Z79.891 Long term (current) use of opiate analgesic; Z79.899 Other long term (current) drug therapy; Z79.82 Long term (current) use of aspirin; Z82.49 Family history of ischemic heart disease and other diseases of the circulatory system
CPT/HCPCS: 36415; 80048; 80053; 80305; 83735; 85025; 93005; 94640; 99285; J0360; J1200; J2920; J2930; J3475; J3490

== ENCOUNTER 2021-05-21 14:43 | Emergency (ER) | payer MEDICARE, MEDICAID ==
[~2021-05-21] VITALS: Ht 182.9 cm; Wt 90.0 kg
[~2021-05-21 14:43] MED LIST changes: -HYDR-4001 MT; -HYDR-4009 MT; +P20 MT; +T3 PO
[2021-05-21 14:46] VITALS: BP 128/89
== END 2021-05-21 22:13 | disposition left against medical advice (07) ==
LOC: ER 14:55
DX: Z53.21 Procedure and treatment not carried out due to patient leaving prior to being seen by health care provider (principal); J44.9 Chronic obstructive pulmonary disease, unspecified; E11.9 Type 2 diabetes mellitus without complications; I10 Essential (primary) hypertension; R56.9 Unspecified convulsions; Z98.890 Other specified postprocedural states
CPT/HCPCS: 93005

== ENCOUNTER 2021-05-23 10:47 | Emergency (ER) | payer MEDICARE, MEDICAID ==
[~2021-05-23] VITALS: Ht 172.7 cm; Wt 101.0 kg
[2021-05-23 14:05] LABS: BASOPHILS % 0.7 % (0.0-2.0); EOSINOPHILS % 0.6 % (0.0-5.0); HEMATOCRIT. 40.8 % (36.0-48.0); HEMOGLOBIN. 13.4 g/dL (12.0-16.0); LYMPHOCYTES % 45.1 % (20.0-50.0); MEAN CORPUSCULAR HEMOGLOBIN 34.2 pg (28.0-32.0); MEAN CORPUSCULAR VOLUME 103.9 fL (81.0-99.0); MEAN PLATELET VOLUME 10.1 fl (7.4-10.4); MONOCYTES % 6.3 % (2.0-8.0); NEUTROPHILS % 47.3 % (40.0-76.0); PLATELET 188 x1000/uL (130-400); RED BLOOD CELL COUNT 3.93 mill/uL (4.2-5.4); RED CELL DISTRIBUTION WIDTH 14.6 % (11.6-14.6)
[2021-05-23 14:09] LABS: CHLORIDE 110 mEq/L (98-107)
[2021-05-23] MEDS ORDERED: KETOROLAC 15MG/ML VIAL IV ONE (15:45)
[2021-05-23] MEDS ORDERED: IBUP-2028 MT (19:22)
[2021-05-23 21:34] VITALS: BP 128/77
== END 2021-05-23 21:35 | disposition home or self-care (01) ==
LOC: ER 10:47
DX: R10.33 Periumbilical pain (principal); K46.9 Unspecified abdominal hernia without obstruction or gangrene; E11.9 Type 2 diabetes mellitus without complications; J44.9 Chronic obstructive pulmonary disease, unspecified; I10 Essential (primary) hypertension; Z79.82 Long term (current) use of aspirin; Z98.890 Other specified postprocedural states; Z88.6 Allergy status to analgesic agent; Z88.5 Allergy status to narcotic agent
CPT/HCPCS: 36415; 74177; 80053; 83690; 85025; 96374; 99285; J1885

== ENCOUNTER 2022-10-14 07:14 | Inpatient (IN) | payer MEDICARE, MEDICAID ==
[~2022-10-14] VITALS: Ht 182.9 cm; Wt 93.4 kg
[2022-10-14] VITALS (10 sets, daily range): BP systolic 116–142; BP diastolic 52–92
[~2022-10-14 07:14] MED LIST changes: +AMI2 MT; +IBUP-2028 MT; +LEVO750T68 MT; -P20 MT; -POTA10CA42 PO; +POTA10CA43 PO
[2022-10-14] MEDS ORDERED: DILTIAZEM HCL 5MG/ML 5ML VIAL IV ONE (08:15)
[2022-10-14 09:09] LABS: CHLORIDE 110 mEq/L (98-107)
[2022-10-14 09:12] LABS: BASOPHILS % 0.6 % (0.0-2.0); EOSINOPHILS % 0.1 % (0.0-5.0); HEMATOCRIT. 41.8 % (36.0-48.0); HEMOGLOBIN. 14.1 g/dL (12.0-16.0); LYMPHOCYTES % 28.1 % (20.0-50.0); MEAN CORPUSCULAR HEMOGLOBIN 35.4 pg (28.0-32.0); MONOCYTES % 6.5 % (2.0-8.0); NEUTROPHILS % 64.7 % (40.0-76.0); PLATELET 179 x1000/uL (130-400); RED BLOOD CELL COUNT 3.98 mill/uL (4.2-5.4); RED CELL DISTRIBUTION WIDTH 17.6 % (11.6-14.6)
[2022-10-14] MEDS ORDERED: MAGNESIUM/ALUMINUM HYDROXIDE/SIMETHICONE 30ML UDC PO PRN (10:15)
[2022-10-14] MEDS ORDERED: ONDANSETRON HCL 4MG/2ML INJ IV PRN (10:15)
[2022-10-14] MEDS ORDERED: CLONIDINE 0.1MG TABLET PO PRN (10:15)
[2022-10-14] MEDS ORDERED: ENOXAPARIN 40MG/0.4ML SYR SUBCUT SCH (10:36)
[2022-10-14] MEDS ORDERED: DILTIAZEM HCL 5MG/ML 5ML VIAL IV PRN (12:00)
[2022-10-14] MEDS: APIXABAN 5 MG TABLET PO SCH ×2 (13:00→23:20)
[2022-10-14] MEDS: DILTIAZEM HCL 60MG TABLET PO SCH ×3 (14:08→23:22)
[2022-10-14] MEDS: FUROSEMIDE 20MG/2ML VIAL IVP SCH (14:08)
[2022-10-14] MEDS: POTASSIUM CHLORIDE 20MEQ TABLET SR PO SCH (14:08)
[2022-10-14] MEDS: PANTOPRAZOLE SODIUM 40 MG/VIAL IV SCH (14:08)
[2022-10-14] MEDS: AMIODARONE HCL 200 MG TABLET PO SCH (18:21)
[2022-10-15] VITALS (15 sets, daily range): BP systolic 112–164; BP diastolic 37–96
[2022-10-15 06:27] LABS: BASOPHILS % 0.5 % (0.0-2.0); EOSINOPHILS % 0.4 % (0.0-5.0); HEMATOCRIT. 38.9 % (36.0-48.0); HEMOGLOBIN. 13.1 g/dL (12.0-16.0); LYMPHOCYTES % 35.7 % (20.0-50.0); MEAN CORPUSCULAR HEMOGLOBIN 35.6 pg (28.0-32.0); MEAN CORPUSCULAR VOLUME 105.7 fL (81.0-99.0); MEAN PLATELET VOLUME 10.6 fl (7.4-10.4); MONOCYTES % 5.7 % (2.0-8.0); NEUTROPHILS % 57.7 % (40.0-76.0); PLATELET 165 x1000/uL (130-400); RED BLOOD CELL COUNT 3.68 mill/uL (4.2-5.4); RED CELL DISTRIBUTION WIDTH 16.7 % (11.6-14.6)
[2022-10-15] MEDS: DILTIAZEM HCL 60MG TABLET PO SCH ×2 (06:30→12:40)
[2022-10-15 06:43] LABS: CHLORIDE 111 mEq/L (98-107)
[2022-10-15 06:56] LABS: HDL CHOLESTEROL 36 mg/dL (40-59); LDL CHOLESTEROL 101 mg/dL (5-100); PHOSPHORUS 3.8 mg/dL (2.5-4.9)
[2022-10-15] MEDS: PANTOPRAZOLE SODIUM 40 MG/VIAL IV SCH (08:57)
[2022-10-15] MEDS: FUROSEMIDE 20MG/2ML VIAL IVP SCH (08:57)
[2022-10-15] MEDS: APIXABAN 5 MG TABLET PO SCH ×2 (08:58→21:42)
[2022-10-15] MEDS: POTASSIUM CHLORIDE 20MEQ TABLET SR PO SCH (08:58)
[2022-10-15] MEDS ORDERED: ASPIRIN 81MG EC TABLET PO SCH (09:00)
[2022-10-15] MEDS ORDERED: MAGNESIUM 2 G PREMIX 50 ML IV NR (10:00)
[2022-10-15] MEDS: AMIODARONE HCL 200 MG TABLET PO SCH ×2 (10:39→17:23)
[2022-10-15] MEDS ORDERED: HYDROCODONE/ACETAMINOPHEN 7.5/325MG TABLET PO PRN (13:30)
[2022-10-15] MEDS ORDERED: NALOXONE HCL 0.4MG/ML VIAL IV PRN (13:45)
[2022-10-15 13:54] LABS: CLARITY URINE CLEAR (CLEAR); COLOR URINE YELLOW (YELLOW); KETONES URINE NEGATIVE (NEGATIVE); LEUKOCYTE ESTERASE URINE 1+ (NEGATIVE); NITRITE URINE NEGATIVE (NEGATIVE); OCCULT BLOOD URINE NEGATIVE (NEGATIVE); PH URINE 6.5 (4.5-8.0); PROTEIN URINE NEGATIVE (NEGATIVE); SPECIFIC GRAVITY URINE 1.008 (1.005-1.030)
[2022-10-15] MEDS ORDERED: POTASSIUM CHLORIDE INJ 40 MEQ in DEXT 5% WATER 250 ML IV NR (14:00)
[2022-10-15] MEDS ORDERED: ALBUTEROL (0.083%) 2.5MG/3ML NEB HHN PRN (14:00)
[2022-10-15 14:18] LABS: *AMPHETAMINES SCREEN URINE NEGATIVE (NEGATIVE); *BARBITURATES SCREEN URINE NEGATIVE (NEGATIVE); *BENZODIAZEPINES SCREEN URINE NEGATIVE (NEGATIVE); *COCAINE SCREEN URINE NEGATIVE (NEGATIVE); CANNABINOID URINE SCREEN NEGATIVE (NEGATIVE); METHADONE URINE SCREEN NEGATIVE (NEGATIVE); OPIATES URINE SCREEN NEGATIVE (NEGATIVE); PHENCYCLIDINE URINE SCREEN NEGATIVE (NEGATIVE)
[2022-10-15] MEDS: DILTIAZEM HCL 90MG TABLET PO SCH (17:40)
[2022-10-16] VITALS (11 sets, daily range): BP systolic 101–137; BP diastolic 26–87
[2022-10-16] MEDS: DILTIAZEM HCL 90MG TABLET PO SCH ×3 (00:21→13:46)
[2022-10-16 07:50] LABS: BASOPHILS % 0.5 % (0.0-2.0); EOSINOPHILS % 1.3 % (0.0-5.0); HEMATOCRIT. 38.4 % (36.0-48.0); HEMOGLOBIN. 12.5 g/dL (12.0-16.0); LYMPHOCYTES % 38.5 % (20.0-50.0); MEAN CORPUSCULAR HEMOGLOBIN 35.1 pg (28.0-32.0); MEAN CORPUSCULAR VOLUME 107.3 fL (81.0-99.0); MEAN PLATELET VOLUME 10.5 fl (7.4-10.4); MONOCYTES % 7.4 % (2.0-8.0); NEUTROPHILS % 52.3 % (40.0-76.0); PLATELET 151 x1000/uL (130-400); RED BLOOD CELL COUNT 3.57 mill/uL (4.2-5.4)
[2022-10-16 07:56] LABS: CHLORIDE 110 mEq/L (98-107)
[2022-10-16] MEDS: APIXABAN 5 MG TABLET PO SCH (10:03)
[2022-10-16] MEDS: POTASSIUM CHLORIDE 20MEQ TABLET SR PO SCH ×2 (10:03→17:11)
[2022-10-16] MEDS: PANTOPRAZOLE SODIUM 40 MG/VIAL IV SCH (10:03)
[2022-10-16] MEDS: FUROSEMIDE 20MG/2ML VIAL IVP SCH (10:04)
[2022-10-16] MEDS: AMIODARONE HCL 200 MG TABLET PO SCH (10:11)
[2022-10-16] MEDS ORDERED: FURO-151 MT (10:57)
[2022-10-16] MEDS ORDERED: POTA-204 PO (10:57)
[2022-10-16] MEDS ORDERED: DILT90TA2 PO (10:57)
[2022-10-16] MEDS ORDERED: AMI2 PO (10:57)
[2022-10-16] MEDS ORDERED: APIX5TAB PO (10:57)
[2022-10-16] MEDS ORDERED: MAGNESIUM 2 G PREMIX 50 ML IV NR (12:30)
[2022-10-17] MEDS ORDERED: FUROSEMIDE 40MG TABLET PO SCH (09:00)
[2022-10-17] MEDS ORDERED: FAMOTIDINE 20MG TABLET PO SCH (09:00)
== END 2022-10-16 17:48 | disposition home or self-care (01) | DRG 201 ==
LOC: ER 07:24 → 5EST 09:50 → EDBEDREQTM 09:53 → EDBEDREQ 09:53 → EDBEDREQSVC 10:51
PROVIDERS: ADMIT Internal Medicine; ATTEND Internal Medicine
DX: I48.91 Unspecified atrial fibrillation (principal); I27.20 Pulmonary hypertension, unspecified; E44.0 Moderate protein-calorie malnutrition; I50.30 Unspecified diastolic (congestive) heart failure; I11.0 Hypertensive heart disease with heart failure; E11.9 Type 2 diabetes mellitus without complications; E87.6 Hypokalemia; G40.909 Epilepsy, unspecified, not intractable, without status epilepticus; E83.42 Hypomagnesemia; K44.9 Diaphragmatic hernia without obstruction or gangrene; E78.00 Pure hypercholesterolemia, unspecified; R07.89 Other chest pain; R74.01 Elevation of levels of liver transaminase levels; Z82.49 Family history of ischemic heart disease and other diseases of the circulatory system; Z87.01 Personal history of pneumonia (recurrent); Z83.3 Family history of diabetes mellitus; Z88.6 Allergy status to analgesic agent; Z88.5 Allergy status to narcotic agent; Z79.899 Other long term (current) drug therapy; Z79.82 Long term (current) use of aspirin
CPT/HCPCS: 36415; 71045; 71275; 76700; 80048; 80053; 80061; 80076; 80305; 81003; 83735; 83880; 84100; 84484; 85025; 85379; 86709; 93005; 93970; 97162; 97535; 99285; C9113; J1940; J3475; J3480; J3490; J7060